=== PATIENT | female | born 1980 | race Caucasian/White ===

== ENCOUNTER 2020-09-04 14:27 | Outpatient (REF) | payer OTHER, SELFPAY | END 2020-09-04 14:28 | disposition home or self-care (01) | LOC: HO.LAB 14:27 | PROVIDERS: Visit Provider Hospitalist | DX: R10.2 Pelvic and perineal pain (principal); R10.30 Lower abdominal pain, unspecified | CPT/HCPCS: 87086 ==

== ENCOUNTER 2020-09-11 09:49 | Outpatient (REF) | payer OTHER, SELFPAY ==
[2020-09-11 14:07] LABS: Hematocrit 41.5 % (37-47); Hemoglobin 12.9 g/dl (12.0-16.0); Mean Corpuscular HGB Conc 31.1 g/dl (31.0-35.0); Mean Corpuscular Hemoglobin 26.8 pg (27.0-33.0); Mean Corpuscular Volume 86.1 fL (80-98); Mean Platelet Volume 11.4 fL (9.4-12.3); Platelet Count 289 X10*3/uL (160-400); Red Blood Count 4.82 X10*6/uL (4.20-5.50); Red Cell Distribution Width 12.7 % (11.0-16.0); White Blood Count 4.5 X10*3/uL (4.8-10.8)
[2020-09-11 14:17] LABS: Appearance Urine CLEAR; Color Urine YELLOW; Glucose Urine UA NEG (NEG); Leukocyte Esterase Urine NEG (NEG); Nitrite Urine NEG (NEG); PH 6.5 (5.0-8.0); Specific Gravity - Urine 1.025 (1.005-1.025); Urine Blood TRACE (NEG); Urine Ketones NEG (NEG); Urine Protein NEG (NEG-TRACE)
[2020-09-11 14:29] LABS: RBC Urine 0-2 /HPF (0); Squamous Epithelial Cell Urine 1+ /LPF; WBC Urine 0 /HPF (0-4)
[2020-09-11 14:47] LABS: Alanine Aminotransferase 29 U/L (0-31); Anion Gap 14 (12-20); Aspartate Amino Transferase 20 U/L (5-31); Blood Urea Nitrogen 9 mg/dL (9-16); C Reactive Protein 0.23 mg/dL (< or = 0.50); Calcium 9.1 mg/dL (8.4-10.2); Carbon Dioxide 24 mmol/L (22-29); Chloride 102 mmol/L (96-108); Cholesterol 206 mg/dL; Estimated Glomerular Filt Rate > 60; HDL Cholesterol 75 mg/dL; LDL Cholesterol Calculated 121 mg/dl; Potassium 4.5 mmol/l (3.3-5.1); Sodium 135 mmol/L (135-145); Triglycerides 51 mg/dL
[2020-09-11 14:55] LABS: Glucose Random 62 mg/dL (60-115); TSH reflex Free T4 0.72 mIU/mL (0.32-4.0)
[2020-09-11 15:16] LABS: Erythrocyte Sedimentation Rate 7 MM/HR (0-20)
== END 2020-09-11 09:50 | disposition home or self-care (01) ==
LOC: HO.WFDLDS 09:49
PROVIDERS: Visit Provider Hospitalist
DX: Z00.00 Encounter for general adult medical examination without abnormal findings (principal); Z13.9 Encounter for screening, unspecified
CPT/HCPCS: 36415; 80048; 80061; 81001; 84443; 84450; 84460; 85027; 85652; 86140

== ENCOUNTER 2020-11-30 07:25 | Outpatient (REF) | payer OTHER, SELFPAY ==
--- NOTE | 2020-11-30 07:29 | MM_ITS ---
EXAMINATION: MM SCREENING DIGITAL BREAST TOMOSYNTHESIS, BILATERAL CLINICAL INFORMATION: Screening. Asymptomatic. The lifetime risk of breast cancer based on the Tyrer-Cuzick Model is 8.3%. COMPARISON: Mammography: None TECHNIQUE: Digital breast tomosynthesis is performed in both the craniocaudal and mediolateral oblique views along with computer-aided detection (CAD). Synthesized 2D images are generated from the tomosynthesis. FINDINGS: The breasts are heterogeneously dense, which may obscure small masses (ACR BI-RADS breast composition Category c). There are no significant masses, abnormal calcifications, or other abnormalities. MM/MM tomosynthesis screening BI IMPRESSION: There are no significant changes from prior study. ASSESSMENT: BI-RADS 1: Negative RECOMMENDATION: Routine annual mammography screening. This patient's information was entered into a reminder system with a target due date for their next mammogram.
== END 2020-11-30 07:26 | disposition home or self-care (01) ==
LOC: HO.MAMMO 07:25
PROVIDERS: PCP Hospitalist; Visit Provider Hospitalist
DX: Z12.31 Encounter for screening mammogram for malignant neoplasm of breast (principal)
CPT/HCPCS: 77063; 77067

== ENCOUNTER 2021-01-03 11:08 | Outpatient (REF) | payer OTHER, SELFPAY ==
[2021-01-03 13:50] LABS: MANUAL DIFF FLAG NO
[2021-01-03 13:57] LABS: Basophils Absolute Auto 0.1 X10*3/uL (0.0-0.2); Basophils Percent Auto 0.7 % (0-2); Eosinophils Absolute Auto 0.2 X10*3/uL (0.0-0.4); Eosinophils Percent Auto 2.1 % (0-4); Hemoglobin 12.6 g/dl (12.0-16.0); Imm Gran Abs Auto 0.03 X10*3/uL (0.00-0.03); Imm Gran Pct Auto 0.4 % (0.0-0.4); Lymphocytes Percent Auto 26.7 % (20-40); Mean Corpuscular HGB Conc 30.7 g/dl (31.0-35.0); Mean Corpuscular Hemoglobin 26.6 pg (27.0-33.0); Mean Corpuscular Volume 86.7 fL (80-98); Mean Platelet Volume 11.3 fL (9.4-12.3); Monocytes Absolute Auto 0.6 X10*3/uL (0.1-1.2); Monocytes Percent Auto 7.2 % (2-11); Neutrophils Absolute Auto 4.8 X10*3/uL (2.0-8.3); Neutrophils Percent Auto 62.9 % (45-73); Platelet Count 326 X10*3/uL (160-400); Red Blood Count 4.73 X10*6/uL (4.20-5.50); Red Cell Distribution Width 12.3 % (11.0-16.0); White Blood Count 7.6 X10*3/uL (4.8-10.8)
[2021-01-03 14:26] LABS: Alanine Aminotransferase 58 U/L (0-31); Albumin Level 4.4 g/dL (3.5-5.0); Alkaline Phosphatase 115 U/L (39-117); Anion Gap 12 (12-20); Aspartate Amino Transferase 29 U/L (5-31); Bilirubin Total 0.4 mg/dL (0.0-1.0); Blood Urea Nitrogen 15 mg/dL (9-16); Calcium 9.4 mg/dL (8.4-10.2); Carbon Dioxide 27 mmol/L (22-29); Chloride 104 mmol/L (96-108); Estimated Glomerular Filt Rate > 60; Glucose Random 85 mg/dL (60-115); Potassium 4.5 mmol/L (3.3-5.1); Sodium 138 mmol/L (135-145); Total Protein 7.1 g/dL (6.5-8.0)
== END 2021-01-03 11:09 | disposition home or self-care (01) ==
LOC: HO.WFDLDS 11:08
PROVIDERS: Visit Provider Family Medicine
DX: R10.30 Lower abdominal pain, unspecified (principal)
CPT/HCPCS: 36415; 80053; 85025

== ENCOUNTER → 2021-02-12 10:41 | Outpatient (BNVA) | payer OTHER, SELFPAY | PROVIDERS: PCP Family Medicine; Visit Provider Physician Assistant ==

== ENCOUNTER 2021-04-04 07:13 | Day surgery (SDC) | payer OTHER, SELFPAY ==
[2021-04-02 14:26] VITALS: BMI 28.3
--- NOTE | 2021-04-04 07:45 | W.PM.OPN ---
Operative Note Operative Note Date of Service: 04/04/21 Narrative: Pre-op diagnosis: Abdominal pain, change in bowel habits Post-op diagnosis: other (Diverticulosis) Procedure: COLONOSCOPY TILL CECUM WITH BIOPSIES Consent: Indications for the procedure and potential complications of bleeding, perforation, reaction to medications and missed diagnosis were discussed with the patient and informed consent was obtained. Instrument: Olympus PCF H 190 L variable stiffness pediatric colonoscope Monitoring: Vital signs and clinical assessment, intermittent blood pressure monitoring, continuous EKG monitoring, Pulse oximetry and Carbon Dioxide monitoring were done throughout the procedure. Colon withdrawl time was 13 minutes. Procedure: The patient was placed in the left lateral decubitis position and pre-procedure medications were administered. After a digital rectal examination of the ano-rectum, the video colonoscope was inserted into the rectum and advanced through the colon to the cecum. The colonoscope was slowly withdrawn in a retrograde panoramic fashion and the colon mucosa was carefully examined including a retroflexed view of the rectum. Findings and interventions are described below. Procedure Difficulty: Colon was long and tortuous and there recurrent loop formation. No maneuvers were required. Findings: Terminal Ileum: The distal 10 cm was examined and appeared normal - random biopsies were obtained Cecum: Normal Ascending Colon: Normal Transverse Colon: Normal Descending Colon: Normal Sigmoid Colon: Moderate diverticulosis Rectum: Normal Ano-rectum: Normal Colon preparation: Excellent Impression and Post Procedure Diagnosis: Colonoscopy Findings: No polyps were detected. Random biopsies obtained from the colon and TI. Moderate diverticulosis seen in the sigmoid colon Plan: Await pathology results Patient has an appointment on 04/17/21 in the [facility] with ROGER Andrade . Repeat Colonoscopy in 10 years if biopsies are normal (with adult colonoscope). Above findings were reviewed with the patient and diverticulosis handout was given in the discharge area Surgeon: Sangeeta Kenney MD Anesthesia: MAC (Dr Ruth & Dr Saab) Was an Chemical Detection Expert used for this Procedure?: No Chemical Detection Expert: April Norman Estimated blood loss (mL): 0 Pathology: other (A: TERMINAL ILEUM BXS R/O CROHN'S DX B: RANDOM COLON BXS R/O MICROSCOPIC COLITIS) Condition: stable Disposition: PACU
--- NOTE | 2021-04-04 07:45 | MHC.SHP ---
Pre-Procedural Eval Section A The patient is an INPATIENT: No The History & Physical has been completed within 30 days and I have reviewed it.: No Section B Chief Complaint: Lower Abdominal Pain Details of Present Illness: abdominal pain, change in bowel habits Relevant Family History (Specify if Yes): No Relevant Social History: None Present Medications: see Short Stay Collaborative assessment Medical History: No relevant PMH History of Previous Operations: Relevant previous surgery/procedure and date(s) (History of tubal ligation) Allergies: Allergies Allergy/AdvReac Type Severity Reaction Status Date / Time No Known Allergies Allergy Verified 02/12/21 10:42 [No Known Allergies*] general anesthesia AdvReac Severe Blood Uncoded 01/03/21 10:37 pressure dropped very low. Review of Systems Sugical H&P ROS: Negative: Constitution, Cardiovascular and Respiratory and Yes, Specify: Gastrointestinal (abd pain, change in bowel habits) Exam Surgical H&P Exam: Normal: Heart, Normal: Lungs, Normal: Extremities and Normal: Abdomen Plan Diagnosis/Plan: Unchanged I have reviewed the history and physical and performed a pertinent physical examination on my patient. No changes have occurred unless specified.
[2021-04-04 09:02] VITALS: BP 121/68; PULSE 67; RESP 18; TEMP 36.1; O2SAT 100
[2021-04-04 09:17] VITALS: BP 108/63; PULSE 73; RESP 16; TEMP 36.1; O2SAT 100
== END 2021-04-04 10:14 | disposition home or self-care (01) ==
PROVIDERS: PCP Registered Nurse; Visit Provider Internal Medicine Gastroenterology
PROC: 0DJD8ZZ Inspection of Lower Intestinal Tract, Via Natural or Artificial Opening Endoscopic (ICD-10-PCS; CPT 45378; principal; 2021-04-04 08:10)
DX: R10.30 Lower abdominal pain, unspecified (principal); R19.4 Change in bowel habit; K57.30 Diverticulosis of large intestine without perforation or abscess without bleeding; Z88.8 Allergy status to other drugs, medicaments and biological substances
CPT/HCPCS: 45380; 88305

== ENCOUNTER → 2021-04-21 11:17 | Outpatient (BNVA) | payer OTHER, SELFPAY | PROVIDERS: PCP Family Medicine; Visit Provider Physician Assistant ==

== ENCOUNTER → 2021-06-25 12:14 | Outpatient (BNVA) | payer OTHER, SELFPAY | PROVIDERS: PCP Family Medicine; Visit Provider Physician Assistant ==

== ENCOUNTER 2021-08-01 09:04 | Outpatient (REF) | payer OTHER, SELFPAY ==
[2021-08-01 11:19] LABS: HBS Num1 0.15 mIU/mL (0-7.99); HBc Num1 0.06 S/CO (0.00-0.79); Hepatitis B Core Antibody Nonreactive (Nonreactive); ~HepC Num1 0.07 S/CO (0.00-0.79); ~Hepatitis B Surface Antibody NONREACTIVE (Nonreactive); ~Hepatitis C Antibody Nonreactive (Nonreactive)
[2021-08-01 11:23] LABS: Thyroid Stimulating Hormone 1.24 uIU/mL (0.32-4.0)
[2021-08-01 11:32] LABS: HBsAGNum1 0.13 S/CO (0.00-0.99); Hepatitis A Antibody IgM 0.13 Index (0-0.79); Hepatitis B Surface Antigen Negative (Negative); ~Hepatitis A Antibody IgM Nonreactive (Nonreactive)
[2021-08-05 11:36] LABS: Transglutaminase IgA <1.0 U/mL
[2021-08-06 11:22] LABS: Endomysial IgA Antibody Negative (Negative)
[2021-08-10 22:21] LABS: FIB-ALT 58 U/L (6-29); FIB-Alpha-2-Macroglobulin 169 mg/dL (106-279); FIB-Apolipoprotein A1 182 mg/dL (101-198); FIB-GGT 116 U/L (3-55); FIB-Haptoglobin 159 mg/dL (43-212); FIB-Total Bilirubin 0.4 mg/dL (0.2-1.2); Liver Fibrosis Stage F0; Nec Inflam Act Grade A0-A1; Nec Inflam Act Score 0.28
== END 2021-08-01 09:05 | disposition home or self-care (01) ==
LOC: HO.WFDLDS 09:04
PROVIDERS: Visit Provider Physician Assistant
DX: R19.7 Diarrhea, unspecified (principal); R94.5 Abnormal results of liver function studies; B19.20 Unspecified viral hepatitis C without hepatic coma; K59.09 Other constipation
CPT/HCPCS: 36415; 81596; 83516; 84443; 86255; 86256; 86704; 86706; 86709; 86803; 87340

== ENCOUNTER 2021-08-15 09:16 | Outpatient (REF) | payer OTHER, SELFPAY | END 2021-08-15 09:17 | disposition home or self-care (01) | LOC: HO.WFDLDS 09:16 | PROVIDERS: Visit Provider Family Medicine | DX: Z13.89 Encounter for screening for other disorder (principal) ==

== ENCOUNTER 2021-08-18 09:15 | Outpatient (REF) | payer OTHER, SELFPAY ==
[2021-08-18 11:27] LABS: D Dimer < 200 NG/ML
[2021-08-18 11:54] LABS: Alanine Aminotransferase 25 U/L (0-31); Albumin Level 4.3 g/dL (3.5-5.0); Alkaline Phosphatase 86 U/L (39-117); Aspartate Amino Transferase 21 U/L (5-31); Bilirubin Direct 0.2 mg/dL (0.0-0.5); Bilirubin Total 0.4 mg/dL (0.0-1.0); Total Protein 6.9 g/dL (6.5-8.0)
== END 2021-08-18 09:16 | disposition home or self-care (01) ==
LOC: HO.LAB 09:15
PROVIDERS: Physician Assistant; PCP Family Medicine; Visit Provider Family Medicine
DX: R10.11 Right upper quadrant pain (principal)
CPT/HCPCS: 36415; 80076; 85379

== ENCOUNTER 2022-07-03 09:49 | Outpatient (REF) | payer OTHER, SELFPAY ==
--- NOTE | ~2022-07-03 | XR_ITS ---
EXAMINATION: XR ANKLE, LEFT CLINICAL INFORMATION: Left ankle 3 views COMPARISON: None TECHNIQUE: AP, lateral, and mortise views of the left ankle. FINDINGS: The mortise is intact. There is no evidence of an acute fracture, dislocation or destructive process. XR/XR ankle LT min 3V IMPRESSION: Unremarkable study.
== END 2022-07-03 09:50 | disposition home or self-care (01) ==
LOC: HO.HMGCX 09:49
PROVIDERS: PCP Family Medicine; Visit Provider Internal Medicine
DX: S93.402A Sprain of unspecified ligament of left ankle, initial encounter (principal)
CPT/HCPCS: 73610

== ENCOUNTER 2022-08-15 09:55 | Outpatient (REF) | payer OTHER, SELFPAY ==
--- NOTE | ~2022-08-15 | MM_ITS ---
EXAMINATION: MM SCREENING DIGITAL BREAST TOMOSYNTHESIS, BILATERAL CLINICAL INFORMATION: Screening. Asymptomatic. The lifetime risk of breast cancer based on the Tyrer-Cuzick Model is 8%. COMPARISON: Mammography: 11/30/2020 (baseline) TECHNIQUE: Digital breast tomosynthesis is performed in both the craniocaudal and mediolateral oblique views along with computer-aided detection (CAD). Synthesized 2D images are generated from the tomosynthesis. FINDINGS: The breasts are heterogeneously dense, which may obscure small masses (ACR BI-RADS breast composition Category c). There are no significant masses, abnormal calcifications, or other abnormalities. Parenchymal pattern is similar to prior baseline exam. The axilla and skin contours are unremarkable. No significant changes. MM/MM tomosynthesis screening BI IMPRESSION: No mammographic evidence of malignancy. ASSESSMENT: BI-RADS 1: Negative RECOMMENDATION: Routine annual mammography screening. This patient's information was entered into a reminder system with a target due date for their next mammogram.
== END 2022-08-15 09:56 | disposition home or self-care (01) ==
LOC: HO.MAMMO 09:55
PROVIDERS: PCP Family Medicine; Visit Provider Family Medicine
DX: Z12.31 Encounter for screening mammogram for malignant neoplasm of breast (principal)
CPT/HCPCS: 77063; 77067

== ENCOUNTER 2022-10-05 11:35 | Outpatient (REF) | payer OTHER, SELFPAY ==
[2022-10-05 14:04] LABS: Hematocrit 42.9 % (37.0-47.0); Hemoglobin 13.3 g/dl (12.0-16.0); Mean Corpuscular Hemoglobin 26.6 pg (27.0-33.0); Mean Corpuscular Volume 85.8 fL (80.0-98.0); Mean Platelet Volume 11.7 fL (9.4-12.3); Platelet Count 318 X10*3/uL (160-400); Red Cell Distribution Width 12.7 % (11.0-16.0); White Blood Count 7.8 X10*3/uL (4.8-10.8)
== END 2022-10-05 11:36 | disposition home or self-care (01) ==
LOC: HO.WFDLDS 11:35
PROVIDERS: Visit Provider Nurse Practitioner Family
DX: R20.2 Paresthesia of skin (principal)
CPT/HCPCS: 36415; 85027

== ENCOUNTER 2022-11-03 09:34 | Outpatient (REF) | payer OTHER, SELFPAY ==
[2022-11-03 11:56] LABS: Alanine Aminotransferase 47 U/L (0-31); Albumin Level 4.2 g/dL (3.5-5.0); Alkaline Phosphatase 109 U/L (39-117); Anion Gap 10 (12-20); Aspartate Amino Transferase 28 U/L (5-31); Bilirubin Total 0.6 mg/dL (0.0-1.0); Blood Urea Nitrogen 12 mg/dL (9-16); Calcium 9.1 mg/dL (8.4-10.2); Carbon Dioxide 26 mmol/L (22-29); Chloride 108 mmol/L (96-108); Cholesterol 210 mg/dL; Estimated Glomerular Filt Rate > 60; Glucose Fasting 93 mg/dL (60-99); HDL Cholesterol 68 mg/dL; LDL Cholesterol Calculated 128 mg/dl; Potassium 4.2 mmol/L (3.3-5.1); Sodium 140 mmol/L (135-145); Total Protein 6.7 g/dL (6.5-8.0); Triglycerides 73 mg/dL
[2022-11-03 12:16] LABS: TSH reflex Free T4 1.21 uIU/mL (0.32-4.0)
== END 2022-11-03 09:35 | disposition home or self-care (01) ==
LOC: HO.WFDLDS 09:34
PROVIDERS: Visit Provider Family Medicine
DX: Z00.00 Encounter for general adult medical examination without abnormal findings (principal)
CPT/HCPCS: 36415; 80053; 80061; 84443

== ENCOUNTER 2023-01-01 09:03 | Outpatient (REF) | payer OTHER, SELFPAY ==
[2023-01-02 03:24] LABS: CT PCR NOT DETECTED (Not Detect.); NG PCR NOT DETECTED (Not Detect.)
[2023-01-06 01:10] LABS: HPV mRNA E6/E7 rflx Not Detected (Not Detected)
== END 2023-01-01 09:04 | disposition home or self-care (01) ==
LOC: HO.LNP 09:03
PROVIDERS: PCP Family Medicine; Visit Provider Advanced Practice Midwife
DX: Z01.419 Encounter for gynecological examination (general) (routine) without abnormal findings (principal); Z20.2 Contact with and (suspected) exposure to infections with a predominantly sexual mode of transmission
CPT/HCPCS: 0353U; 87624; 88142

== ENCOUNTER 2023-02-04 08:52 | Outpatient (REF) | payer OTHER, SELFPAY ==
--- NOTE | ~2023-02-04 | XR_ITS ---
EXAMINATION: XR KNEE, LEFT CLINICAL INFORMATION: Knee pain COMPARISON: None available. TECHNIQUE: AP and lateral views of the left knee of the left knee. FINDINGS: There is no evidence of acute fracture or dislocation of the left knee. Left knee joint spaces are maintained. Small left knee effusion. No suspicious lesion is noted. XR/XR knee LT 2V IMPRESSION: Small left knee effusion without underlying bony abnormality appreciated.
--- NOTE | ~2023-02-04 | XR_ITS ---
EXAMINATION: XR KNEE, RIGHT CLINICAL INFORMATION: Right knee pain COMPARISON: None available. TECHNIQUE: AP and lateral views of the right knee. FINDINGS: There is no evidence of acute fracture or dislocation right knee. Right knee joint spaces are maintained. There is a small patella spur superiorly at the patellofemoral joint. There is a small suprapatellar effusion seen. XR/XR knee RT 2V IMPRESSION: Small right knee effusion. No significant bony abnormality appreciated.
[2023-02-04 12:20] LABS: Alanine Aminotransferase 35 U/L (0-31); Alkaline Phosphatase 113 U/L (39-117); Anion Gap 14 (12-20); Aspartate Amino Transferase 20 U/L (5-31); Bilirubin Total 0.3 mg/dL (0.0-1.0); Blood Urea Nitrogen 12 mg/dL (9-16); Calcium 9.1 mg/dL (8.4-10.2); Carbon Dioxide 25 mmol/L (22-29); Chloride 108 mmol/L (96-108); Estimated Glomerular Filt Rate > 60; Glucose Random 92 mg/dL (60-115); Potassium 4.5 mmol/L (3.3-5.1); Sodium 142 mmol/L (135-145); Total Protein 6.4 g/dL (6.5-8.0)
[2023-02-04 14:23] LABS: MANUAL DIFF FLAG NO
[2023-02-04 14:27] LABS: Basophils Absolute Auto 0.1 X10*3/uL (0.0-0.2); Basophils Percent Auto 0.6 % (0-2); Eosinophils Absolute Auto 0.1 X10*3/uL (0.0-0.4); Eosinophils Percent Auto 0.9 % (0-4); Hematocrit 43.1 % (37.0-47.0); Hemoglobin 13.4 g/dl (12.0-16.0); Imm Gran Abs Auto 0.04 X10*3/uL (0.00-0.03); Imm Gran Pct Auto 0.5 % (0.0-0.4); Lymphocytes Percent Auto 25.9 % (20-40); Mean Corpuscular HGB Conc 31.1 g/dl (31.0-35.0); Mean Corpuscular Hemoglobin 26.9 pg (27.0-33.0); Mean Corpuscular Volume 86.5 fL (80.0-98.0); Mean Platelet Volume 11.7 fL (9.4-12.3); Monocytes Absolute Auto 0.5 X10*3/uL (0.1-1.2); Neutrophils Absolute Auto 5.1 x10*3/uL (2.0-8.3); Neutrophils Percent Auto 66.1 % (45-73); Platelet Count 326 X10*3/uL (160-400); Red Blood Count 4.98 X10*6/uL (4.20-5.50); Red Cell Distribution Width 12.7 % (11.0-16.0); White Blood Count 7.7 X10*3/uL (4.8-10.8)
[2023-02-04 14:30] LABS: Rheumatoid Factor < 13.0 IU/mL (<15.0)
[2023-02-04 15:07] LABS: D Dimer High Sensitivity < 150 NG/ML
[2023-02-04 15:19] LABS: Erythrocyte Sedimentation Rate 10 MM/HR (0-20)
[2023-02-05 03:34] LABS: Syphilis Screen Nonreactive (Nonreactive)
[2023-02-05 04:11] LABS: HBc Num1 0.06 S/CO (0.00-0.79); HIV AB/AG Nonreactive (Nonreactive); HIV Num 1 0.05 S/CO (0.00-0.99); Hepatitis B Core Antibody Nonreactive (Nonreactive); ~HepC Num1 0.07 S/CO (0.00-0.79); ~Hepatitis C Antibody Nonreactive (Nonreactive)
[2023-02-06 18:29] LABS: CRP High Sensitivity 2.4 mg/L
== END 2023-02-04 08:53 | disposition home or self-care (01) ==
LOC: HO.WFDLDS 08:52
PROVIDERS: Advanced Practice Midwife; PCP Family Medicine; Visit Provider Family Medicine
DX: Z00.00 Encounter for general adult medical examination without abnormal findings (principal); Z11.4 Encounter for screening for human immunodeficiency virus [HIV]; R74.8 Abnormal levels of other serum enzymes; M25.561 Pain in right knee; M25.562 Pain in left knee; M79.604 Pain in right leg; M79.605 Pain in left leg; Z20.2 Contact with and (suspected) exposure to infections with a predominantly sexual mode of transmission
CPT/HCPCS: 36415; 73560; 80053; 85025; 85379; 85652; 86141; 86431; 86704; 86780; 86803; 87389

== ENCOUNTER 2023-04-22 09:15 | Outpatient (REF) | payer OTHER, SELFPAY ==
--- NOTE | ~2023-04-22 | XR_ITS ---
EXAMINATION: XR PELVIS CLINICAL INFORMATION: Pain COMPARISON: None available. TECHNIQUE: AP view of the pelvis. FINDINGS: Mild symmetric hip joint space narrowing and small osteophytes along the acetabular rim. No fracture or focal osseous lesion. Surgical clips overlie the inferomedial aspect of both hips. XR/XR pelvis 1-2V IMPRESSION: Mild symmetric bilateral hip osteoarthritis. No acute osseous abnormality.
--- NOTE | ~2023-04-22 | XR_ITS ---
EXAMINATION: XR AP STANDING VIEW BOTH KNEES. XR KNEE, BILATERAL. CLINICAL INFORMATION: Bilateral knee pain COMPARISON: 02/04/2023 TECHNIQUE: AP standing view both knees. Lateral and sunrise views of each knee. FINDINGS: Minimal medial compartment osteoarthritis of both knees which appears symmetric with small marginal osteophytes and minimal narrowing. No significant change. Otherwise unremarkable. No joint effusions. No fracture. XR/XR knee standing BI IMPRESSION: Minimal medial compartment osteoarthritis of both knees, unchanged.
--- NOTE | ~2023-04-22 | XR_ITS ---
EXAMINATION: XR AP STANDING VIEW BOTH KNEES. XR KNEE, BILATERAL. CLINICAL INFORMATION: Bilateral knee pain COMPARISON: 02/04/2023 TECHNIQUE: AP standing view both knees. Lateral and sunrise views of each knee. FINDINGS: Minimal medial compartment osteoarthritis of both knees which appears symmetric with small marginal osteophytes and minimal narrowing. No significant change. Otherwise unremarkable. No joint effusions. No fracture. XR/XR knee RT 2V IMPRESSION: Minimal medial compartment osteoarthritis of both knees, unchanged.
--- NOTE | ~2023-04-22 | XR_ITS ---
EXAMINATION: XR AP STANDING VIEW BOTH KNEES. XR KNEE, BILATERAL. CLINICAL INFORMATION: Bilateral knee pain COMPARISON: 02/04/2023 TECHNIQUE: AP standing view both knees. Lateral and sunrise views of each knee. FINDINGS: Minimal medial compartment osteoarthritis of both knees which appears symmetric with small marginal osteophytes and minimal narrowing. No significant change. Otherwise unremarkable. No joint effusions. No fracture. XR/XR knee LT 2V IMPRESSION: Minimal medial compartment osteoarthritis of both knees, unchanged.
== END 2023-04-22 09:16 | disposition home or self-care (01) ==
LOC: HO.HOSX 09:15
PROVIDERS: PCP Family Medicine; Visit Provider Orthopaedic Surgery
DX: M17.0 Bilateral primary osteoarthritis of knee (principal); M25.551 Pain in right hip; M25.552 Pain in left hip
CPT/HCPCS: 72170; 73560; 73565

== ENCOUNTER 2023-08-12 08:58 | Outpatient (AMB) | payer OTHER, SELFPAY ==
[2023-08-12 09:09] VITALS: BP 133/63; PULSE 66; BMI 27.0
--- NOTE | 2023-08-12 09:09 | MHC.OFFVIS ---
Intake Vital Signs 08/12/23 09:09 Height 5 ft 2 in Weight 147 lb 11.355 oz BMI 27.0 BP 133/63 Blood Pressure Location Lt brachial Position Sitting Pulse 66 Intake Visit Reasons: having stomach issues again Intake Note: Yue presents in the office for stomach issues. CC: She has to use the bathroom too often that it is starting to mess with her life. It is loose stools when she has a BM. No blood when she has a BM. All over the stomach not a specific spot. Allergies No Known Allergies [No Known Allergies*] Allergy (Verified 08/12/23 09:09) general anesthesia Adverse Reaction (Severe, Uncoded 08/12/23 09:09) Blood pressure dropped very low. Medication List - Last Reconciled 08/12/23 by Cyn Lewis PA-C No Known Home Meds HPI HPI Comments History of Present Illness Details A 43 y/o female with IBS- presents with urgency- she is stressed out at her job-her daughter getting - She has sometimes 3 or 4 loose stool a day- She has taken imodium- sometimes it works , sometimes it doesnt- This is effecting her job- her job site may change- and the BR will not be close-She is thinking of applying for FMLA She has had no fever, chills, weight loss, abdominal pain hematemesis or hematochezia PFSH Medical History (Updated 08/16/23 @ 12:28 by Cyn Lewis PA-C) Hx of cardiac murmur Deficient knowledge of leg surgery Surgical History H/O colonoscopy Hx of varicose vein ligation History of tubal ligation Family History Father No problems noted. Sister No problems noted. Sister No problems noted. 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 Current occupational exposures/hazards: No Cognitive needs: No Hearing needs: No Vision needs: No Review of Systems Const All systems reviewed & are unremarkable except as noted in HPI and below Card Denies chest pain and Denies dyspnea Resp Denies dyspnea GI Denies abdominal pain, Denies heartburn, Reports loose stools, Denies nausea and Denies vomiting Psych Reports anxiety Physical Exam Vital Signs: Last Vital Signs Pulse 66 08/12/23 09:09 BP 133/63 08/12/23 09:09 BMI result Body Mass Index 27.0 Const General: cooperative, healthy appearing, comfortable and anxious Orientation/consciousness: patient oriented x3 Limitations: no limitations Eyes Sclerae: sclerae normal Resp Effort & Inspection: normal respiratory effort and able to speak in complete sentences Auscultation: clear to auscultation bilaterally, no rales, no rhonchi and no wheezes Cardio Rate: regular rate Rhythm: regular rhythm Heart sounds: S1 normal heart sound present and S2 normal heart sound present GI Palpation (GI): Soft to palpation and nontender Skin General skin exam: no rashes or lesions noted Neuro General: patient oriented x3 Extrem General: Yes full ROM Psych Appearance: grossly normal and well kempt Mental Status: mental status grossly normal Speech and movement: Normal speech and movement present and Clear speech present Affect: Anxious affect present Attitude: cooperative Thought process: Normal thought process present Thought content: Normal thought content present Insight: Good insight present (Psych) Judgement: Good judgement present (Psych) Results Reviewed Results Reviewed: ollected: 04/04/21 Location: [facility] Received: 04/04/21 Diagnosis A.? Terminal ileum, biopsy:? Terminal ileal mucosa within normal limits. B.? Colon, random, biopsy:? Colonic mucosa within normal limits. COMMENT: Diagnostic features of a colitis are not seen. Assessment & Plan Assessment & Plan (1) IBS (irritable bowel syndrome): Code(s): K58.9 - Irritable bowel syndrome without diarrhea Plan: Dicyclomine 10 mg upto tid- Citrucel FODMap (2) Anxiety: Code(s): F41.9 - Anxiety disorder, unspecified Medications: New dicyclomine 10 mg PO TID 90 caps 0RF methylcellulose (laxative) ([employer]rucel) 500 mg PO BID 60 tabs 5RF Patient Instructions: 43-year-old female IBS, very anxious-job stress, Stress reduction Will give trial of once again to dicyclomine 10 mg, she may begin with 1 daily she may increase to t.i.d. if needed. Reviewed maintain high-fiber she may give trial to [employer] Prep has a few socially vents coming up that causes extra stress hopefully as the wind down symptoms will improve Encouraged to call with any questions or concerns Appreciate the opportunity assist in care the patient Coding Level of Care Code Est Pt Level 3 (85538) Diagnoses IBS (irritable bowel syndrome) K58.9 Anxiety F41.9 Time Spent (min) 30
== END 2023-08-12 09:42 | disposition home or self-care (01) ==
PROVIDERS: PCP Family Medicine; Visit Provider Physician Assistant
DX: K58.9 Irritable bowel syndrome, unspecified (principal); F41.9 Anxiety disorder, unspecified
CPT/HCPCS: 99213

== ENCOUNTER → 2023-08-12 08:58 | Outpatient (BNVA) | payer OTHER, SELFPAY | PROVIDERS: PCP Family Medicine; Visit Provider Physician Assistant ==

== ENCOUNTER 2023-09-13 09:23 | Outpatient (AMB) | payer OTHER, SELFPAY ==
[2023-09-13 09:29] VITALS: BP 104/53; PULSE 74; BMI 28.9
--- NOTE | 2023-09-13 09:29 | MHC.OFFVIS ---
Intake Vital Signs 09/13/23 09:29 Height 5 ft 2 in Weight 158 lb BMI 28.9 BP 104/53 L Blood Pressure Location Lt brachial Position Sitting Pulse 74 Intake Visit Reasons: 1 month follow up IBS Intake Note: Patient follow up for IBS. Patient denies any other GI issues. Progressive Care Manager Required: No Accompanied by: Self / Same As Patient Allergies No Known Allergies [No Known Allergies*] Allergy (Verified 09/13/23 09:28) general anesthesia Adverse Reaction (Severe, Uncoded 08/12/23 09:09) Blood pressure dropped very low. 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 She has a followed here job that she does not we can as that is something she enjoys an she has not had 1 event. She does discussed at length her stool work stress- Trial dicyclomine 10 mg, she may begin with 1 daily she may increase to t.i.d. if needed. Reviewed maintain high-fiber she may give trial to [employer]-she has not taken Appetite is fairly good No nausea, vomiting, hematemesis, hematochezia, fever chills PFSH Medical History Hx of cardiac murmur Deficient knowledge of leg surgery Surgical History H/O colonoscopy Hx of varicose vein ligation History of tubal ligation Family History Father No problems noted. Sister No problems noted. Sister No problems noted. 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 Current occupational exposures/hazards: No Cognitive needs: No Hearing needs: No Vision needs: No Review of Systems Const All systems reviewed & are unremarkable except as noted in HPI and below Card Denies chest pain Psych Reports anxiety Physical Exam Vital Signs: Last Vital Signs Pulse 74 09/13/23 09:29 BP 104/53 L 09/13/23 09:29 BMI result Body Mass Index 28.9 Const General: cooperative, healthy appearing, comfortable and no acute distress Orientation/consciousness: patient oriented x3 Limitations: no limitations Eyes Sclerae: sclerae normal Resp Effort & Inspection: normal respiratory effort and able to speak in complete sentences Auscultation: clear to auscultation bilaterally, no rales, no rhonchi and no wheezes Cardio Rate: regular rate Rhythm: regular rhythm Heart sounds: S1 normal heart sound present, S2 normal heart sound present and no murmurs (With no murmur appreciated) Skin General skin exam: no rashes or lesions noted Neuro General: patient oriented x3 Extrem General: Yes full ROM Psych Appearance: grossly normal and well kempt Mental Status: mental status grossly normal Speech and movement: Normal speech and movement present and Clear speech present Affect: Anxious affect present Attitude: cooperative Thought process: Normal thought process present Assessment & Plan Assessment & Plan (1) Anxiety: Comment: Extreme job stress Code(s): F41.9 - Anxiety disorder, unspecified Plan: Stress reduction Follow-up PCP (2) IBS (irritable bowel syndrome): Code(s): K58.9 - Irritable bowel syndrome without diarrhea Plan: Trial dicyclomine, [employer] Plan reassurrance Hopefully she will be able to change positions within her organization Patient Instructions: Job stress-lengthy discussion Hopefully she is able to be redirected within her in as a rdz Encouraged to call questions or concerns She will follow-up with PCP as well Coding Level of Care Code Est Pt Level 3 (89097) Diagnoses Anxiety F41.9 IBS (irritable bowel syndrome) K58.9 Time Spent (min) 30
== END 2023-09-13 13:42 | disposition home or self-care (01) ==
PROVIDERS: PCP Family Medicine; Visit Provider Physician Assistant
DX: F41.9 Anxiety disorder, unspecified (principal); K58.9 Irritable bowel syndrome, unspecified
CPT/HCPCS: 99213

== ENCOUNTER → 2023-09-13 09:23 | Outpatient (BNVA) | payer OTHER, SELFPAY | PROVIDERS: PCP Family Medicine; Visit Provider Physician Assistant ==

== ENCOUNTER 2023-09-16 15:50 | Outpatient (AMB) | payer OTHER, SELFPAY ==
--- NOTE | 2023-09-16 15:53 | A.OFFPC_ITS ---
Vital Signs 09/16/23 15:54 Height 5 ft 2 in Weight 163 lb 4 oz BMI 29.9 BP 112/64 Blood Pressure Location Rt brachial Position Sitting Respiration 13 Pulse 88 Pulse Source Pulse Oximeter Temp 97.8 F Temp Source Temporal Artery Scan Pulse Oximetry (%) 99 Oxygen Delivery Method Room Air Intake Visit Reasons: R hand pain Intake Note: Patient states that the sensation feels like her hand is falling asleep. Patient states that it started when she was on her cruise, and it keeps happening in the middle of the night. Patient states that the pain is in her wrist as well. 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 Medication List - Last Reconciled 09/16/23 by Tuyet Chatman CNP dicyclomine 10 mg PO TID methylcellulose (laxative) (Citrucel) 500 mg PO BID Tobacco use date assessed: 09/16/23 Dental Screening Dental Screen Date: 09/16/23 Did you have a dental visit in the last 12 months?: Yes Did you have a dental problem in the last 6 months where you did not have access to dental care?: No Was dental information given to patient?: Patient has dentist HPI HPI Comments History of Present Illness Details 43-year-old female presents with complai nts tingling and numbness to her right hand. She notes that She notes that the smptoms radiates from the wrist to her fingers and worsen at night. Her symptoms have been intermittent for the past 1 month. She denies loss of sensation. She denies fall, injury, or trauma. [facility] Medical History Hx of cardiac murmur Deficient knowledge of leg surgery Surgical History H/O colonoscopy Hx of varicose vein ligation History of tubal ligation Family History Father No problems noted. Sister No problems noted. Sister No problems noted. 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 Emilaino Hartley, Monisha Ace, Sunny Chilel and colleagues, with an educational billy from [employer]. Review of Systems Const Details: Const Denies chills, Denies fatigue, Denies fever(s), Denies headache(s) and Denies weakness ENT Denies dizziness and Denies headache(s) Card Denies chest pain, Denies lightheadedness, Denies dyspnea and Denies other (Palpitations) Resp Denies cough, Denies dyspnea, Denies wheezing and Denies other (shortness of breath) GI Denies abdominal pain, Denies melena, Denies hematochezia, Denies change in bowel habits, Denies dyspepsia and Denies nausea Denies hematuria and Denies dysuria Musc Reports as per HPI Skin/Breast Denies rash, Denies unusual bruising and Denies wounds Neuro Denies abnormal gait, Denies dizziness, Denies headache(s), Denies memory loss, Reports numbness, Denies Sensory deficit (Neuro), Reports tingling and Denies weakness Psych Denies anxiety, Denies depression, Denies memory loss Endo Denies cold intolerance, Denies fatigue, Denies heat intolerance, Denies polydipsia and Denies polyuria Aller/Immun Denies wheezing Physical exam (Primary Care) Vital Signs: Last Vital Signs Temp 97.8 F 09/16/23 15:54 Pulse 88 09/16/23 15:54 Resp 13 09/16/23 15:54 BP 112/64 09/16/23 15:54 Pulse Ox 99 09/16/23 15:54 Oxygen Delivery Method Room Air 09/16/23 15:54 BMI result Body Mass Index 29.9 Tobacco/Smoking Status: Tobacco use Status Tobacco use date assessed 11/13/22 09/16/23 16:06 Patient Tobacco Use Status Never used Tobacco 09/16/23 16:06 e-Cigarette/Vaping Use Never Used 09/16/23 16:06 Thrive Assessment: Date of Thrive Assessment Date Thrive assessed 11/13/22 09/16/23 16:06 Const Other: General: no acute distress and well developed Nutritional Appearance: well nourished Orientation/consciousness: patient oriented x3 HENMT Head: Yes normocephalic and Yes atraumatic Eyes General: appearance normal, both eyes and all related structures Pupils: Equal, round and reactive pupils present EOM: EOMs intact bilaterally Resp Effort & Inspection: normal respiratory effort Auscultation: clear to auscultation bilaterally Cardio Rate: regular rate Rhythm: regular rhythm Heart sounds: S1 normal heart sound present, S2 normal heart sound present, no gallops, no murmurs and no rubs GI Palpation (GI): No Abdominal aortic bruit present, Soft to palpation, nontender, No hepatosplenomegaly present and No Rebound tenderness present Auscultation: normal bowel sounds General: Yes no CVA tenderness Back/Spine/Pelvis Back: no CVA tenderness Cervical Spine: cervical ROM normal and No Cervical spine tenderness Thoracic/Lumbar Spine: thoraco-lumbar ROM normal, No pain with thoraco-lumbar ROM, No thoracic spinal tenderness and No lumbar spinal tenderness Extrem General: Yes normal to inspection, No edema and No calf tenderness Negative Phalen, Tinel, and Philomena test Skin General: warm and dry. Normal skin color. Normal skin turgor Neuro General: patient oriented x3, gait normal and no focal neuro deficit Cranial nerves: Yes Equal, round and reactive pupils present Cognition (Neuro): normal cognition Gait exam (Neuro): Normal gait present Sensory Exam: No Sensory deficit (Neuro) Psych Appearance: grossly normal Affect: normal affect Attitude: cooperative Thought process: Normal thought process present Assessment and Plan Assessment & Plan (1) Right hand paresthesia: Code(s): R20.2 - Paresthesia of skin Plan: Reports symptoms for the past 1 month Negative Phalen, Tinel, and Philomena test; low clinical suspicion workup patella syndrome or dequervain's tenosynovitis Likely nerve pain or electrolytes imbalance Gabapentin ordered. Take as prescribed Will check CBC and BMP and make changes as needed Follow-up with worsening or new symptoms Verbalized understanding and agreed with treatment plan. Medications: New gabapentin 200 mg (2 x 100 mg) PO BEDTIME 14 days PRN 28 caps 0RF paresthesia Coding Level of Care Code Est Pt Level 3 (93034) Diagnoses Right hand paresthesia R20.2
[2023-09-16 15:54] VITALS: BP 112/64; PULSE 88; RESP 13; TEMP 36.6; O2SAT 99; BMI 29.9
== END 2023-09-16 16:35 | disposition home or self-care (01) ==
PROVIDERS: PCP Family Medicine; Visit Provider Nurse Practitioner Family
DX: R20.2 Paresthesia of skin (principal)
CPT/HCPCS: 99213

== ENCOUNTER 2023-12-20 14:18 | Outpatient (AMB) | payer OTHER, SELFPAY ==
[2023-12-20 14:21] VITALS: BP 128/63; PULSE 60; BMI 29.3
--- NOTE | 2023-12-20 14:21 | A.OFFPC_ITS ---
Vital Signs 12/20/23 14:21 Height 5 ft 2 in Weight 160 lb 6 oz BMI 29.3 BP 128/63 Blood Pressure Location Lt brachial Position Sitting Pulse 60 Pulse Source Pulse Oximeter Intake Visit Reasons: Vomiting Blood Intake Note: Patient is here with concern of vomiting blood, mucousy looking. She states it started this morning. Allergies No Known Allergies [No Known Allergies*] Allergy (Verified 12/20/23 14:26) general anesthesia Adverse Reaction (Severe, Uncoded 12/20/23 14:26) Blood pressure dropped very low. Tobacco use date assessed: 12/20/23 HPI Vomiting Blood HPI Details 43 y/o female presents today with compla ints of hematemesis. Symptoms started this morning and reports x2 episodes. Pt notes hx of IBS which she states has been acting up lately. She does have a GI specialist - Cyn Lewis who she had called this morning. PFSH Medical History Hx of cardiac murmur Deficient knowledge of leg surgery Surgical History H/O colonoscopy Hx of varicose vein ligation History of tubal ligation Family History Father No problems noted. Sister No problems noted. Sister No problems noted. 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 Emiliano Hartley, Monisha Ace, Sunny Chilel and colleagues, with an educational billy from [employer]. Physical exam (Primary Care) Vital Signs: Last Vital Signs Pulse 60 12/20/23 14:21 BP 128/63 12/20/23 14:21 BMI result Body Mass Index 29.3 Tobacco/Smoking Status: Tobacco use Status Tobacco use date assessed 12/20/23 12/20/23 14:30 Patient Tobacco Use Status Never used Tobacco 12/20/23 14:30 e-Cigarette/Vaping Use Never Used 12/20/23 14:30 Thrive Assessment: Date of Thrive Assessment Date Thrive assessed 11/13/22 12/20/23 14:30 Assessment and Plan Assessment & Plan (1) Hematemesis: Code(s): K92.0 - Hematemesis Plan: Possible?gastritis?but?patient?notes?that?she?has?IBS?and ?this?has?been?flared?up?lately. May?have?significant?constipation/diarrhea?and?may?be?somewhat?obstipated?with?n ausea?and?vomiting. Check?labs?including?LFTs?and?CBC Will?give?her?a?script?for?omeprazole?and?ondansetron Increase?hydration?significantly She?tried?calling?her?heading and priming tool setter?today?but?they?are?on?holiday.??She?hetal l?call?again?tomorrow. (2) IBS (irritable bowel syndrome): Code(s): K58.9 - Irritable bowel syndrome without diarrhea Plan: As?above Orders: Orders Comprehensive Met. Panel Today K92.0 - Hematemesis Complete Blood Count Auto Diff Today K92.0 - Hematemesis, Z00.00 - Encounter for general adult medical examination without abnormal findings H pylori Ag Stool Today K92.0 - Hematemesis Medications: New omeprazole 40 mg PO DAILY 30 days 30 caps 0RF ondansetron 4 mg PO Q8H 30 days PRN 20 tabs 0RF nausea and vomiting Coding Level of Care Code Est Pt Level 3 (05239) Diagnoses Hematemesis K92.0 IBS (irritable bowel syndrome) K58.9
== END 2023-12-20 14:51 | disposition home or self-care (01) ==
PROVIDERS: PCP Family Medicine; Visit Provider Family Medicine
DX: K92.0 Hematemesis (principal); K58.9 Irritable bowel syndrome, unspecified
CPT/HCPCS: 99213

== ENCOUNTER 2023-12-21 16:06 | Outpatient (REF) | payer OTHER, SELFPAY ==
[2023-12-21 16:18] LABS: MANUAL DIFF FLAG NO
[2023-12-21 16:53] LABS: Basophils Absolute Auto 0.1 X10*3/uL (0.0-0.2); Basophils Percent Auto 0.7 % (0-2); Eosinophils Absolute Auto 0.1 X10*3/uL (0.0-0.4); Eosinophils Percent Auto 1.1 % (0-4); Hematocrit 42.6 % (37.0-47.0); Hemoglobin 13.4 g/dl (12.0-16.0); Imm Gran Abs Auto 0.01 X10*3/uL (0.00-0.03); Imm Gran Pct Auto 0.1 % (0.0-0.4); Lymphocytes Percent Auto 28.8 % (20-40); Mean Corpuscular HGB Conc 31.5 g/dl (31.0-35.0); Mean Corpuscular Volume 85.7 fL (80.0-98.0); Mean Platelet Volume 11.5 fL (9.4-12.3); Monocytes Absolute Auto 0.3 X10*3/uL (0.1-1.2); Monocytes Percent Auto 4.3 % (2-11); Neutrophils Absolute Auto 4.6 x10*3/uL (2.0-8.3); Platelet Count 311 X10*3/uL (160-400); Red Blood Count 4.97 X10*6/uL (4.20-5.50); Red Cell Distribution Width 12.3 % (11.0-16.0); White Blood Count 7.1 X10*3/uL (4.8-10.8)
[2023-12-21 17:15] LABS: Alanine Aminotransferase 26 U/L (0-31); Albumin Level 4.3 g/dL (3.5-5.0); Alkaline Phosphatase 92 U/L (39-117); Anion Gap 13 (12-20); Aspartate Amino Transferase 20 U/L (5-31); Bilirubin Total 0.3 mg/dL (0.0-1.0); Blood Urea Nitrogen 11 mg/dL (9-16); Calcium 9.7 mg/dL (8.4-10.2); Carbon Dioxide 26 mmol/L (22-29); Chloride 107 mmol/L (96-108); Estimated Glomerular Filt Rate > 60; Glucose Random 124 mg/dL (60-115); Potassium 3.9 mmol/L (3.3-5.1); Sodium 142 mmol/L (135-145); Total Protein 7.5 g/dL (6.5-8.0)
== END 2023-12-21 16:07 | disposition home or self-care (01) ==
LOC: HO.LAB 16:06
PROVIDERS: PCP Family Medicine; Visit Provider Family Medicine
DX: Z00.00 Encounter for general adult medical examination without abnormal findings (principal); K92.0 Hematemesis
CPT/HCPCS: 36415; 80053; 85025

== ENCOUNTER 2023-12-27 17:08 | Outpatient (REF) | payer OTHER, SELFPAY | END 2023-12-27 17:09 | disposition home or self-care (01) | LOC: HO.LNP 17:08 | PROVIDERS: Visit Provider Family Medicine | DX: K92.0 Hematemesis (principal) | CPT/HCPCS: 87338 ==

== ENCOUNTER 2024-01-04 09:00 | Outpatient (REF) | payer OTHER, SELFPAY ==
[2024-01-04 12:30] LABS: CT PCR NOT DETECTED (Not Detect.); NG PCR NOT DETECTED (Not Detect.)
[2024-01-05 14:48] LABS: BV Int Neg Control Negative (Negative); BV Int Pos Control Positive (Positive)
== END 2024-01-04 09:01 | disposition home or self-care (01) ==
LOC: HO.LAB 09:00
PROVIDERS: PCP Family Medicine; Visit Provider Advanced Practice Midwife
DX: N92.0 Excessive and frequent menstruation with regular cycle (principal); Z20.2 Contact with and (suspected) exposure to infections with a predominantly sexual mode of transmission
CPT/HCPCS: 0353U; 87480; 87510; 87660

== ENCOUNTER 2024-01-04 09:00 | Outpatient (AMB) | payer OTHER, SELFPAY ==
[2024-01-04 09:07] VITALS: BP 110/64; BMI 29.4
--- NOTE | 2024-01-04 09:07 | MHC.OFFVIS ---
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 Is last menstrual period known: Yes Last menstrual period: 12/14/23 HPI HPI Comments History of Present Illness Details She is a premenopausal woman presenting for annual examination. Doing well with no concerns. She tries to eat healthy and stays active with exercise. Regular monthly menses x 7d, HMB 4-5d/7d. Currently is sexually active w/. She denies vaginal itching and irritation. STI screening offered; she accepts. Denies family history of breast, ovarian or colon cancer. Last pap smear 2022, negative. Mammogram: not UTD. [facility] Medical History Hx of cardiac murmur Deficient knowledge of leg surgery Surgical History H/O colonoscopy Hx of varicose vein ligation History of tubal ligation Family History Father No problems noted. Sister No problems noted. Sister No problems noted. 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 Current occupational exposures/hazards: No Cognitive needs: No Hearing needs: No Vision needs: No Female Reproductive History Menstrual Date of last menstrual period: 12/14/23 control method: permanent sterilization Permanent Sterilization: BTL Total pregnancies: 2 Full term: 2 Number of Living Children: 2 Date of last pap smear: 01/01/23 (neg pap and hpv) Date of Mammogram: 08/15/22 (Birad 1) Review of Systems Const All systems reviewed & are unremarkable except as noted in HPI and below Reports as per HPI Eyes Reports no additional complaints ENT Reports no additional complaints Card Reports no additional complaints Resp Reports no additional complaints GI Reports as per HPI and Reports no additional complaints Reports as per HPI Musc Reports no additional complaints Skin/Breast Reports as per HPI Neuro Reports no additional complaints Psych Reports no additional complaints Endo Reports no additional complaints Carrillo/Lymph Reports no additional complaints Aller/Immun Reports no additional complaints Physical Exam Vital Signs: Last Vital Signs BP 110/64 01/04/24 09:07 BMI result Body Mass Index 29.4 Const General: cooperative, healthy appearing, no acute distress, well developed and alert Orientation/consciousness: patient oriented x3 HEENT Head: Yes normal to inspection Eyes General: appearance normal, both eyes and all related structures Neck Neck: Yes normal visual inspection Thyroid: Thyroid normal Chest Chest palpation & inspection: normal inspection of the chest and other (no puckering, dimpling, peau de orange, retraction, discharge, masses) Breast/axilla inspection: normal inspection of the breasts Breast/axilla palpation: normal palpation of the breasts Resp Effort & Inspection: normal respiratory effort GI Inspection: Yes normal to inspection Palpation (GI): Soft to palpation Rectal Exam - Female: deferred General: Yes bladder normal to palpation External Female Exam: normal external appearance and normal appearance of the urethra Speculum Exam - Vagina: normal appearance of the vagina, normal palpation and normal vaginal discharge Speculum Exam - Cervix: normal appearance of the cervix and normal palpation Bimanual exam- vagina & uterus: normal bimanual exam, normal palpation, uterine size normal, bladder normal to palpation, normal palpation and non-tender (RV) Bimanual Exam- Adnexa, other: no masses Skin General skin exam: no rashes or lesions noted Rashes: no rashes Neuro General: patient oriented x3 Cognition (Neuro): normal cognition Extrem General: Yes normal to inspection Psych Attitude: cooperative Thought process: Normal thought process present Assessment & Plan Assessment & Plan (1) Encounter for well woman exam with routine gynecological exam: Code(s): Z01.419 - Encounter for gynecological examination (general) (routine) without abnormal findings (2) Heavy menses: Code(s): N92.0 - Excessive and frequent menstruation with regular cycle Qualifiers: Menorrhagia type: with regular cycle Qualified Code(s): N92.0 - Excessive and frequent menstruation with regular cycle Plan Discussed: Current recommendations for pap smears per ASCCP guidelines. Breast awareness and periodic breast exams. Maintain a healthy lifestyle including a well balanced diet and routine exercise. Workup for heavy menstrual bleeding to include ultrasound and labs return to the office for a follow-up possible endometrial biopsy. Mammogram yearly. Colonoscopy >45, or at risk sooner. Patient verbalizes understanding and agrees to the plan of care. She was given opportunity to ask questions and all questions were answered to the best of my ability. RTO in one year for annual decorator consultant examination. This note is constructed using voice recognition software. While every effort has been made to ensure accuracy, principal database developer errors may have been included. Orders: Orders MM tomosynthesis screening BI Today Z12.31 - Encounter for screening mammogram for malignant neoplasm of breast US pelvic and transvaginal Today N92.0 - Excessive and frequent menstruation with regular cycle Complete Blood Count no Diff Today N92.0 - Excessive and frequent menstruation with regular cycle Bacterial Vaginosis Panel Today N92.0 - Excessive and frequent menstruation with regular cycle CT NG by PCR Today N92.0 - Excessive and frequent menstruation with regular cycle Coding Level of Care Code Est Pt Prev Care 40-64y(91376) Diagnoses Encounter for well woman exam with routine gynecological exam Z01.419 Menorrhagia with regular cycle N92.0 Menorrhagia type: with regular cycle
== END 2024-01-04 10:31 | disposition home or self-care (01) ==
LOC: HO.HWS 09:00
PROVIDERS: PCP Family Medicine; Visit Provider Advanced Practice Midwife
DX: Z01.419 Encounter for gynecological examination (general) (routine) without abnormal findings (principal); N92.0 Excessive and frequent menstruation with regular cycle
CPT/HCPCS: 99396

== ENCOUNTER 2024-01-04 09:29 | Outpatient (REF) | payer OTHER, SELFPAY | END 2024-01-04 09:30 | disposition home or self-care (01) | LOC: HO.LNP 09:29 | PROVIDERS: Visit Provider Advanced Practice Midwife | DX: Z13.89 Encounter for screening for other disorder (principal) ==

== ENCOUNTER 2024-01-04 13:58 | Outpatient (AMB) | payer OTHER, SELFPAY ==
--- NOTE | 2024-01-04 14:03 | MHC.OFFVIS ---
Intake Intake Visit Reasons: Follow up IBS Intake Note: Patient follow up for IBS. Patient cc: between diarrhea and constipation. Denies any other GI issues. Loading Machine Adjuster Required: No Accompanied by: Self / Same As Patient Allergies No Known Allergies [No Known Allergies*] Allergy (Verified 01/04/24 14:04) general anesthesia Adverse Reaction (Severe, Uncoded 12/20/23 14:26) Blood pressure dropped very low. HPI HPI Comments History of Present Illness Details A 43 y/o female seen by PCP with 2 episodes of -hemetemisis-she says she vomited twice in role however has had no further or if symptoms Labs/ cbc normal, HP - negative hemetemisis- she says she vomited x 2 and noted obvious blood'- she has not had any further issues- PCP sent omeprazole and zofran- she never took the zofran- takes ppi prn Alternating stool pattern dicyclomine is helpful- however causes her to be drowsy-so does not take during the week-this is typical for her. Over all she is feeling better- however she has a very stressful job- she is having diarrhea - worsens with menses- No fever, no chills no nausea, vomiting hematemesis or hematochezia PFSH Medical History Hx of cardiac murmur Deficient knowledge of leg surgery Surgical History H/O colonoscopy Hx of varicose vein ligation History of tubal ligation Family History Father No problems noted. Sister No problems noted. Sister No problems noted. 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 Current occupational exposures/hazards: No Cognitive needs: No Hearing needs: No Vision needs: No Review of Systems Const All systems reviewed & are unremarkable except as noted in HPI and below GI Denies abdominal pain, Reports hematochezia and Reports diarrhea Psych Reports anxiety and Reports other (Stress) Physical Exam Const General: cooperative, healthy appearing and anxious Orientation/consciousness: patient oriented x3 Limitations: no limitations Resp Effort & Inspection: normal respiratory effort and able to speak in complete sentences Neuro General: patient oriented x3 Psych Appearance: grossly normal and well kempt Speech and movement: Clear speech present Affect: Anxious affect present Attitude: cooperative Thought process: Normal thought process present Thought content: Normal thought content present Assessment & Plan Assessment & Plan (1) Chronic diarrhea: Comment: Anxious, job stress-is hopeful for job [id number] Code(s): K52.9 - Noninfective gastroenteritis and colitis, unspecified Plan: Reassurance, support Plan Will update labs stool studies-to be sure enough to overlook any underlying causes Orders: Orders GI Panel 01/04/24 R19.7 - Diarrhea, unspecified CDiff Gene PCR 01/04/24 R19.7 - Diarrhea, unspecified Thyroid Stimulating Hormone 01/04/24 R19.8 - Other specified symptoms and signs involving the digestive system and abdomen Calprotectin, Fecal 01/04/24 R19.7 - Diarrhea, unspecified Lactoferrin, Fecal, Quant. 01/04/24 K52.9 - Noninfective gastroenteritis and colitis, unspecified Leukocytes Stool Qualitative 01/04/24 R19.7 - Diarrhea, unspecified C Reactive Protein 01/04/24 K52.9 - Noninfective gastroenteritis and colitis, unspecified Endomysial IgA rflx Titer 01/04/24 K52.9 - Noninfective gastroenteritis and colitis, unspecified Transglutaminase IgA 01/04/24 R19.7 - Diarrhea, unspecified Patient Instructions: Stress reduction- Labs Stool studies Coding Level of Care Code Est Pt Level 3 (26992) Diagnoses Chronic diarrhea K52.9 Time Spent (min) 30
== END 2024-01-04 14:57 | disposition home or self-care (01) ==
PROVIDERS: PCP Family Medicine; Visit Provider Physician Assistant
DX: K52.9 Noninfective gastroenteritis and colitis, unspecified (principal)
CPT/HCPCS: 99213

== ENCOUNTER 2024-01-11 14:56 | Outpatient (REF) | payer OTHER, SELFPAY ==
--- NOTE | ~2024-01-11 | US_ITS ---
EXAMINATION: US PELVIS AND TRANSVAGINAL CLINICAL INFORMATION: Excessive and frequent menstruation. Vaginal bleeding. Last menstrual period 01/09/2024. COMPARISON: None available. TECHNIQUE: Ultrasound of the pelvis is performed using both transabdominal and transvaginal transducers along with Doppler. Transvaginal imaging is performed due to inadequate visualization transabdominally. FINDINGS: The uterus measures 12.0 x 5.2 x 6.2 cm, volume 203.5 mL. The uterus is diffusely heterogeneous in echotexture. Hypoechoic uterine areas characteristic of fibroids measure 0.7 x 0.6 x 0.7 cm and 0.7 x 0.6 x 0.7 cm. Endometrial thickness is 2.4 mm, although visualization of the endometrium is limited due to uterine heterogeneity. No significant free fluid. Right ovary measures 3.1 x 1.6 x 2.4 cm, volume 4.6 mL and is unremarkable. Left ovary measures 1.9 x 1.4 x 2.6 cm, volume 3.4 mL and is unremarkable. US/US pelvic and transvaginal IMPRESSION: 1. Heterogeneous uterus with subcentimeter fibroids. 2. Endometrial thickness is 2.4 mm, although visualization of the endometrium is limited due to uterine heterogeneity.
== END 2024-01-11 14:57 | disposition home or self-care (01) ==
LOC: HO.US 14:56
PROVIDERS: PCP Family Medicine; Visit Provider Obstetrics & Gynecology
DX: N92.0 Excessive and frequent menstruation with regular cycle (principal)
CPT/HCPCS: 76830; 76856

== ENCOUNTER 2024-11-20 13:02 | Outpatient (AMB) | payer OTHER, SELFPAY ==
--- NOTE | 2024-11-20 13:02 | MHC.OFFWIV ---
Intake Vital Signs 11/20/24 13:05 Height 5 ft 2 in Weight 172 lb BMI 31.5 BP 124/72 Blood Pressure Location Rt brachial Position Sitting Respiration 12 Pulse 71 Pulse Source Pulse Oximeter Temp 97.7 F Temp Source Oral Pulse Oximetry (%) 98 Oxygen Delivery Method Room Air Intake Visit Reasons: RIGHT EAR PAIN/COLD SYMPTOMS Intake Note: Patient complaining of right earache, bodyaches, congestion x 1 week Patient Tobacco Use Status: Never used Tobacco Allergies No Known Allergies [No Known Allergies*] Allergy (Verified 11/20/24 13:18) general anesthesia Adverse Reaction (Severe, Uncoded 11/20/24 13:18) Blood pressure dropped very low. Medication List - Last Reconciled 11/20/24 by TERRENCE Saldana No Known Home Meds Do you need a note to return to daycare/school/sports/work: No HPI HPI Comments History of Present Illness Details History of Present Illness The patient is a 44-year-old female presenting with complaints of right ear pain and sinus congestion. The symptoms began approximately one week ago. The patient describes the ear pain as accompanied by a popping sensation similar to what is experienced during airplane travel, localized to the right ear. There is no report of sore throat, although the patient notes an itchy sensation. + sinus pain over R cheek/teeth. The patient has not experienced fever, chills, or a significant cough. The only intervention attempted has been Tylenol, which provided temporary relief of symptoms. The patient mentions that this pain extends in the area surrounding the ear. No prior medical care has been sought for this condition before the present visit. Exam Awake alert NAD Sclera and conjunctiva clear bilat Nares patent, turbinates erythematous and edematous bilat R>L, + R max sinus tenderness with palpation TM intact w/ clouding on L, + bulging and erythema w/ loss of landmarks on R MMM, pharynx WNL RRR LS CTAB Plan - Prescribe amoxicillin-clavulanate Augmentin) for a duration of seven days to treat acute otitis media and acute sinusitis. Dosage to be taken twice daily with meals to minimize gastrointestinal upset. Patient was informed and verbally consented to the use of an ambient scribe for clinic note documentation during this visit. Discussion Notes I discussed with the patient that her symptoms are indicative of an acute otitis media and possibly concurrent sinusitis, both of bacterial origin. I recommended initiating treatment with Augmentin, a penicillin-based antibiotic, due to its efficacy in treating such infections. The patient was advised regarding the importance of completing the full course of antibiotics over seven days, even if symptoms improve earlier, to ensure proper eradication of the infection. I explained that the fullness and popping sensations in the ear might persist for some weeks, as fluid takes time to resolve, and this does not necessarily indicate persistent infection. The patient was instructed that should symptoms like fever, chills, or a worsening condition arise, a follow-up visit would be necessary. The prescription was electronically sent to her preferred pharmacy for prompt collection. Patient Instructions - Take the prescribed Augmentin twice daily with food. - Complete the full seven-day course of the antibiotic, even if feeling better before completion. - Monitor for any worsening of symptoms such as fever or chills, and seek medical attention if they occur. - Be aware that ear fullness and popping may persist and like a normal recovery process. - Avoid pinching your nose to relieve ear fullness until symptoms significantly improve. - Contact the pharmacy in advance to ensure prescription readiness. PFSH Medical History Hx of cardiac murmur Deficient knowledge of leg surgery Surgical History H/O colonoscopy Hx of varicose vein ligation History of tubal ligation Family History Father No problems noted. Sister No problems noted. Sister No problems noted. 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 Current occupational exposures/hazards: No Cognitive needs: No Hearing needs: No Vision needs: No Physical Exam Vital Signs: Last Vital Signs Temp 97.7 F 11/20/24 13:05 Pulse 71 11/20/24 13:05 Resp 12 11/20/24 13:05 BP 124/72 11/20/24 13:05 Pulse Ox 98 11/20/24 13:05 Oxygen Delivery Method Room Air 11/20/24 13:05 BMI result Body Mass Index 31.5 Assessment & Plan Assessment & Plan (1) Otitis media, right: Code(s): H66.91 - Otitis media, unspecified, right ear Qualifiers: Otitis media type: suppurative Chronicity: acute Recurrence: non-recurrent Spontaneous tympanic membrane rupture: without spontaneous rupture Qualified Code(s): H66.001 - Acute suppurative otitis media without spontaneous rupture of ear drum, right ear (2) Acute bacterial sinusitis: Code(s): J01.90 - Acute sinusitis, unspecified; B96.89 - Other specified bacterial agents as the cause of diseases classified elsewhere Plan . Medications: New amoxicillin-pot clavulanate 875-125 mg 1 tab PO BID 7 days 14 tabs 0RF Patient Instructions: What Is It? Sinuses are air-filled spaces behind the bones of the upper face: between the eyes and behind the forehead, nose and cheeks. The lining of the sinuses are made up of cells with tiny hairs on their surfaces called cilia. Other cells in the lining produce mucus. The mucus traps germs and pollutants and the cilia push the mucus out through narrow sinus openings into the nose. When the sinuses become inflamed or infected, the mucus thickens and clogs the openings to one or more sinuses. Fluid builds up inside the sinuses causing increased pressure. Also bacteria can become trapped, multiply and infect the lining. This is sinusitis. Prevention There are some measures you can take to decrease your risk of developing sinusitis. If you smoke cigarettes, you should quit. The smoke can irritate nasal passageways and increase the likelihood of infection. Nasal allergies can trigger sinus infections, too. By identifying the allergen (the substance causing the allergic reaction) and avoiding it, you can help prevent sinusitis. If you have congestion from a cold or allergies, the following may help to reduce the risk of developing sinusitis: Drink lots of water. This thins nasal secretions and keeps mucous membranes moist. Use steam to soothe nasal passages. Breathe deeply while standing in a hot shower, or inhale the vapor from a basin filled with hot water while holding a towel over your head. Avoid blowing your nose with great force, which can push bacteria into the sinuses. Some doctors advise periodic home nasal washings to clear secretions. This may help prevent, and also treat, sinus infections. Treatment Many sinus infections improve without treatment. However, several medications may speed recovery and reduce the chance that an infection will become chronic. Decongestants - Congestion often triggers sinus infections, and decongestants can open the sinuses and allow them to drain. Several are available: Pseudoephedrine (Sudafed) is available without prescription, alone or in combination with other medications in multi-symptom cold and sinus remedies. Pseudoephedrine can cause insomnia, racing pulse and jitteriness. Do not use if you have high blood pressure or a heart condition. Phenylephrine (such as Sudafed PE) is an alternative tqpk-utp-[id number] oral decongestant. If you take products containing oral phenylephrine, check with the pharmacist to be certain there is no interaction with other medications you take. Oxymetazoline ([place] and others) and phenylephrine (David-Synephrine and others) are found in nasal sprays. They are effective and may be less likely to cause the side effects seen with pseudoephedrine. However, using a nasal decongestant for more than three days can cause worse symptoms when you stop the medication. This is called the rebound effect. Antihistamines - These medications help to relieve the symptoms of nasal allergies that lead to inflammation and infections. However, some doctors advise against using antihistamines during a sinus infection because they can cause excessive drying and slow the drainage process. Pxsd-ohd-pjvsyhz antihistamines include diphenhydramine (Benadryl and others), chlorpheniramine (Chlor-Trimeton and others) and loratadine (Claritin). Fexofenadine (Shonna) and cetrizine (Zyrtec) are available by prescription. Nasal steroids - Anti-inflammatory sprays such as mometasone (Nasonex) and fluticasone (Flonase), both available by prescription, reduce swelling of nasal membranes. Like antihistamines, nasal steroids can be most useful for those who have nasal allergies. Nasal steroids tend to produce less drying than antihistamines. Unlike nasal decongestants, nasal steroids can be used for prolonged periods. Saline nasal sprays - These salt-water sprays are safe to use and can provide some relief by adding moisture to the nasal passages, thinning mucus secretions and helping to flush out any bacteria that may be present. Pain relievers - Acetaminophen (Tylenol), ibuprofen (Advil, Motrin and others) or naproxen (Aleve) can be taken sinus pain. Antibiotics - Your doctor may prescribe an antibiotic if he or she suspects that a bacterial infection is causing your sinusitis. If you start taking an antibiotic, complete the entire course so that the infection is completely killed off. Not all cases of sinusitis require antibiotic treatment: Talk with your doctor about whether an antibiotic is right for you. Keep in mind that antibiotics can cause side effects, such as allergic reactions, rash and diarrhea. In addition, overusing antibiotics eventually leads to the spread of bacteria that no longer can be killed by the most commonly prescribed antibiotics. When To Call A Professional Contact a doctor if you experience facial pain along with a headache and fever, cold symptoms that last longer than seven to 10 days, or persistent green discharge from the nose. If your symptoms don't improve within a week of beginning treatment, call your doctor. Call sooner if symptoms are getting worse. If you have repeated bouts of acute sinusitis, you may have allergies or another treatable cause of sinus congestion. Ask your doctor for advice. Coding Level of Care Code Est Pt Level 3 (04620) Diagnoses Non-recurrent acute suppurative otitis media of right ear without spontaneous rupture of tympanic membrane H66.001 Otitis media type: suppurative Chronicity: acute Recurrence: non-recurrent Spontaneous tympanic membrane rupture: without spontaneous rupture Acute bacterial sinusitis J01.90; B96.89
[2024-11-20 13:05] VITALS: BP 124/72; PULSE 71; RESP 12; TEMP 36.5; O2SAT 98; BMI 31.5
== END 2024-11-20 13:25 | disposition home or self-care (01) ==
PROVIDERS: PCP Family Medicine; Visit Provider Nurse Practitioner Family
DX: H66.001 Acute suppurative otitis media without spontaneous rupture of ear drum, right ear (principal); J01.90 Acute sinusitis, unspecified; B96.89 Other specified bacterial agents as the cause of diseases classified elsewhere

== ENCOUNTER 2025-01-01 09:16 | Outpatient (AMB) | payer OTHER, SELFPAY ==
[2025-01-01 09:30] VITALS: BP 122/80; PULSE 77; O2SAT 98
--- NOTE | 2025-01-01 09:30 | AM.OFFWIN_ITS ---
Intake Vital Signs 01/01/25 09:30 Weight 177 lb BP 122/80 Blood Pressure Location Rt brachial Position Sitting Pulse 77 Pulse Source Pulse Oximeter Pulse Oximetry (%) 98 Oxygen Delivery Method Room Air Intake Visit Reasons: EP-rt wrist pain Intake Note: Patient here for right hand and wrist pain that has been present since last night. Patient Tobacco Use Status: Never used Tobacco Allergies No Known Allergies [No Known Allergies*] Allergy (Verified 01/01/25 09:36) general anesthesia Adverse Reaction (Severe, Uncoded 01/01/25 09:36) Blood pressure dropped very low. Do you need a note to return to daycare/school/sports/work: Yes HPI HPI Comments History of Present Illness Details History of Present Illness The patient is a 44-year-old female presenting with excruciating pain in her right hand. She has a previous history of hand pain addressed by her primary care physician. The current episode emerged sharply last , with the intensity peaking the night before consultation, disrupting sleep. Pain is characterized as sharp and radiating up the arm, severely impacting hand function. Initial remedies included heating pad application and Advil, offering some symptom alleviation. Though there is no formal carpal tunnel syndrome diagnosis, symptoms are suggestive, notably aggravated by sustained computer use at her job. She states she has difficulty in hand closure, with pain amplification, highlighting functional limitations. Physical Exam General: Cooperative, healthy appearing, comfortable, no acute distress and well developed Orientation: Patient oriented x3 Limitations: Limited hand movement due to pain Head: Normal to inspection Ears: Hearing grossly normal bilaterally Nose: Normal external nose present Face and sinus: Normal facial exam Eyes: Appearance normal, both eyes and all related structures Neck: Normal visual inspection and Yes full ROM Respiratory: Normal respiratory effort and able to speak in complete sentences. 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 Sister No problems noted. Sister No problems noted. 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 Current occupational exposures/hazards: No Cognitive needs: No Hearing needs: No Vision needs: No Review of Systems Const All systems reviewed & are unremarkable except as noted in HPI and below Physical Exam Vital Signs: Last Vital Signs Pulse 77 01/01/25 09:30 BP 122/80 01/01/25 09:30 Pulse Ox 98 01/01/25 09:30 Oxygen Delivery Method Room Air 01/01/25 09:30 Assessment & Plan Assessment & Plan (1) Carpal tunnel syndrome on right: Code(s): G56.01 - Carpal tunnel syndrome, right upper limb Plan: The possible carpal tunnel syndrome will be managed conservatively with a wrist brace recommended for nighttime wear to reduce wrist flexion. Naproxen, at a dosage of 500 mg, has been prescribed for pain and inflammation, enhancing muscu loskeletal relief. The patient is informed about conservative management's effectiveness and the potential for orthopedic consultation if symptoms remain unresolved. Ice application is advocated during the day for inflammation control. The importance of balancing brace use to maintain mobility is emphasized. Patient was informed and verbally consented to the use of an ambient scribe for clinic note documentation during this visit. Orders: Referrals Orthopedics Referral G56.01 - Carpal tunnel syndrome, right upper limb Medications: New naproxen 500 mg PO Q12H PRN 20 tabs 0RF pain Coding Level of Care Code Est Pt Level 4 (86125) Diagnoses Carpal tunnel syndrome on right G56.01
== END 2025-01-01 10:01 | disposition home or self-care (01) ==
PROVIDERS: PCP Family Medicine; Visit Provider Physician Assistant
DX: G56.01 Carpal tunnel syndrome, right upper limb (principal)

== ENCOUNTER → 2025-01-01 09:16 | Outpatient (BNVA) | payer OTHER, SELFPAY | PROVIDERS: PCP Family Medicine ==

== ENCOUNTER 2025-01-31 09:22 | Outpatient (REF) | payer OTHER, SELFPAY ==
--- NOTE | 2025-01-31 09:25 | EMG_ITS ---
Chief complaint: Hand numbness Reason for referral: Evaluate for Carpal Tunnel Syndrome Referred by: Ludwig DURAN Procedure done: Right upper extremity NCS/EMG Precautions and/or limitations: None The limb temperature was monitored continuously and remained between 32-36 degrees C during the performance of the NCS. Nerve Conduction Studies Anti Sensory Summary Table ?Stim Site NR Onset (ms) Norm Onset (ms) Peak (ms) Norm Peak (ms) O-P Amp (?V) Norm O-P Amp Site1 Site2 Delta-0 (ms) Dist (cm) Jonathon (m/s) Norm Jonathon (m/s) Right Median Anti Sensory (2nd Digit) Wrist ? 2.7 3.6 <3.6 15.2 >10 Wrist 2nd Digit 2.7 14.0 52 Right Ulnar Anti Sensory (5th Digit) Wrist ? 2.3 2.9 <3.7 50.6 >15.0 Wrist 5th Digit 2.3 14.0 61 Motor Summary Table ?Stim Site NR Onset (ms) Norm Onset (ms) O-P Amp (mV) Norm O-P Amp iAmp (mV) Amp (1st) (%) Site1 Site2 Delta-0 (ms) Dist (cm) Jonathon (m/s) Norm Jonathon (m/s) Right Median Motor (Abd Poll Brev) Wrist ? 3.7 <3.9 10.6 >4.5 11.8 100.0 Elbow Wrist 3.5 19.0 54 >45 Elbow ? 7.2 10.4 11.8 98.1 Right Ulnar Motor (Abd Dig Minimi) Wrist ? 2.2 <3.0 10.9 >5 13.0 100.0 B Elbow Wrist 2.7 18.5 69 >45 B Elbow ? 4.9 10.6 12.8 97.2 A Elbow B Elbow 1.3 10.0 77 >45 A Elbow ? 6.2 10.8 13.0 99.1 Comparison Summary Table ?Stim Site NR Peak (ms) Norm Peak (ms) P-T Amp (?V) Site1 Site2 Delta-P (ms) Norm Delta (ms) Right Median/Radial Dig I Comparison (Digit 1 - 10cm) Median ? 3.5 <2.9 25.9 Median Radial 1.1 Radial ? 2.4 <2.8 25.2 EMG ?Side Muscle Nerve Root Ins Act Fibs Psw Amp Dur Poly Recrt Int Pat Comment Right 1stDorInt Ulnar C8-T1 Nml Nml Nml Nml Nml 0 Nml Complete Right FlexCarRad Median C6-7 Nml Nml Nml Nml Nml 0 Nml Complete Right Biceps Musculocut C5-6 Nml Nml Nml Nml Nml 0 Nml Complete Right Triceps Radial C6-7-8 Nml Nml Nml Nml Nml 0 Nml Complete Right Deltoid Axillary C5-6 Nml Nml Nml Nml Nml 0 Nml Complete FINDINGS: Prolonged interlatency difference between right median sensory nerve. Otherwise, all other nerves tested were within normal. Concentric needle EMG was performed in selected muscles of the right upper extremity. Study did not reveal signs of electric abnormalities as shown in the table above. IMPRESSION: 1. This is a minimally abnormal study. 2. There is electrodiagnostic evidence for right very mild/borderline median neuropathy at the wrist, could still be consistent with carpal tunnel syndrome. 3. There is no electrodiagnostic evidence for ulnar neuropathy, brachial plexopathy, or cervical radiculopathy. Thank you for your kind referral. Farrah Kimble MD, PARAM Board Certified, [place] Board [employer] and Rehabilitation (ABPMR) Board Certified, [place] Board of Electrodiagnostic Medicine (ABEM) COD[place] [id number] [facility]
== END 2025-01-31 09:23 | disposition home or self-care (01) ==
LOC: HO.NEURO 09:22
PROVIDERS: PCP Family Medicine
DX: G56.11 Other lesions of median nerve, right upper limb (principal)
CPT/HCPCS: 95860; 95886; 95909

== ENCOUNTER → 2025-01-31 09:25 | Outpatient (BNV) | payer OTHER, SELFPAY | PROVIDERS: PCP Family Medicine; Visit Provider Physical Medicine & Rehabilitation | DX: G56.01 Carpal tunnel syndrome, right upper limb (principal) | CPT/HCPCS: 95886; 95909 ==

== ENCOUNTER 2025-02-07 12:30 | Outpatient (REF) | payer OTHER, SELFPAY | END 2025-02-07 12:31 | disposition home or self-care (01) | LOC: HO.MAMMO 12:30 | PROVIDERS: PCP Family Medicine; Visit Provider Family Medicine | DX: Z12.31 Encounter for screening mammogram for malignant neoplasm of breast (principal) | CPT/HCPCS: 77063; 77067 ==

== ENCOUNTER → 2025-02-07 12:45 | Outpatient (BNV) | payer OTHER, SELFPAY | PROVIDERS: PCP Family Medicine; Visit Provider Internal Medicine | DX: Z12.31 Encounter for screening mammogram for malignant neoplasm of breast (principal) | CPT/HCPCS: 77063; 77067 ==

== ENCOUNTER 2025-03-02 10:21 | Outpatient (AMB) | payer OTHER, SELFPAY ==
--- NOTE | 2025-03-02 10:24 | A.OFFVIS_ITS ---
Vital Signs 03/02/25 10:25 Height 5 ft 2 in Weight 177 lb BMI 32.4 Intake Visit Reasons: OV-Right upper extremity EMG F/U Intake Note: Yue is a 44 year old female who presents today for an EMG review of right upper extremity. Allergies No Known Allergies [No Known Allergies*] Allergy (Verified 03/02/25 10:26) general anesthesia Adverse Reaction (Severe, Uncoded 03/02/25 10:26) Blood pressure dropped very low. HPI HPI OV-Right upper extremity EMG F/U: Details: Yue is a 44 year old female who presents today for an EMG review of right upper extremity. [facility] Medical History Hx of cardiac murmur Deficient knowledge of leg surgery Surgical History H/O colonoscopy Hx of varicose vein ligation History of tubal ligation Family History Father No problems noted. Sister No problems noted. Sister No problems noted. 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 Normal sensation in the tips of all digits of the left hand today. No thenar or intrinsic wasting. Good APB muscle firing and good finger cross. Vascular: Capillary refill brisk. ROM: Patient can make a fist and extend all their digits. Skin: No lacerations or abrasions noted. General: No ecchymosis. No erythema or evidence of infection. Results Reviewed Results Reviewed: IMPRESSION: 1. This is a minimally abnormal study. 2. There is electrodiagnostic evidence for right very mild/borderline median neuropathy at the wrist, could still be consistent with carpal tunnel syndrome. 3. There is no electrodiagnostic evidence for ulnar neuropathy, brachial plexopathy, or cervical radiculopathy. Thank you for your kind referral. Farrah Kimble MD, PARAM Assessment & Plan Assessment & Plan (1) Carpal tunnel syndrome on right: Code(s): G56.01 - Carpal tunnel syndrome, right upper limb Category: Medical Plan 1. Right carpal tunnel syndrome Symptoms intermittent, not daily, worse at night Patient is educated about this condition Patient is educated about the typical treatment course At this time, patient states she would like to hold off on operative intervention for now Patient was educated on potential risks of prolonging treatment for carpal tunnel syndrome Patient understands these in his amenable to this plan Follow-up in 6 months to discuss right carpal tunnel release, sooner with any acute concerns Coding Level of Care Code New Pt Level 3 (55196) Diagnoses Carpal tunnel syndrome on right G56.01
[2025-03-02 10:25] VITALS: BMI 32.4
== END 2025-03-02 11:51 | disposition home or self-care (01) ==
LOC: HO.HOS 10:22
PROVIDERS: PCP Family Medicine
DX: G56.01 Carpal tunnel syndrome, right upper limb (principal)
CPT/HCPCS: 99203

== ENCOUNTER 2025-04-04 15:45 | Outpatient (REF) | payer OTHER, SELFPAY ==
[2025-04-04 20:44] LABS: Bacterial Vaginosis PCR NEGATIVE (Negative); Candida Group PCR NOT DETECTED (Not Detect); Candida glab krusei PCR NOT DETECTED (Not Detect); Trichomonas vaginalis PCR NOT DETECTED (Not Detect)
[2025-04-04 21:27] LABS: CT PCR NOT DETECTED (Not Detect.); NG PCR NOT DETECTED (Not Detect.)
== END 2025-04-04 15:46 | disposition home or self-care (01) ==
LOC: HO.LNP 15:45
PROVIDERS: PCP Family Medicine; Visit Provider Advanced Practice Midwife
DX: Z01.419 Encounter for gynecological examination (general) (routine) without abnormal findings (principal); N93.9 Abnormal uterine and vaginal bleeding, unspecified
CPT/HCPCS: 81515; 87491; 87591

== ENCOUNTER 2025-04-04 15:45 | Outpatient (AMB) | payer OTHER, SELFPAY ==
--- NOTE | 2025-04-04 15:46 | A.OFFVIS_ITS ---
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 HPI Comments Details: She is a premenopausal woman presenting for annual examination. Doing well with gynecological assistant concerns: increased discharge w/cramps, no odor, dysuria. Regular monthly menses, HMB 5/7d. Currently is sexually active. History of tubal ligation. She tries to eat healthy, exercise is limited due to knee pain. Denies family history of breast, ovarian or colon cancer. Last pap smear 2022, negative. Mammogram: 2024. [facility] [place] Medical History Encounter for well woman exam with routine gynecological exam Abnormal uterine bleeding (AUB) Fibroid Hx of cardiac murmur Deficient knowledge of leg surgery Surgical History H/O colonoscopy Hx of varicose vein ligation History of tubal ligation Family History Father No problems noted. Sister No problems noted. Sister No problems noted. 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 Current occupational exposures/hazards: No Cognitive needs: No Hearing needs: No Vision needs: No Female Reproductive History Menstrual Total pregnancies: 2 Full term: 2 Number of Living Children: 2 Date of last pap smear: 01/03/23 (negative pap smear, negative hpv ) Date of Mammogram: 02/07/25 (bi rad 1) Review of Systems Const All systems reviewed & are unremarkable except as noted in HPI and below Reports as per HPI Eyes Reports no additional complaints ENT Reports no additional complaints Card Reports no additional complaints Resp Reports no additional complaints GI Reports as per HPI and Reports no additional complaints Reports as per HPI Musc Reports no additional complaints Skin/Breast Reports as per HPI Neuro Reports no additional complaints Psych Reports no additional complaints Endo Reports no additional complaints Carrillo/Lymph Reports no additional complaints Aller/Immun Reports no additional complaints Physical Exam Vital Signs: Last Vital Signs BP 110/62 04/04/25 15:54 BMI result Body Mass Index 32.4 Const General: cooperative, healthy appearing, no acute distress, well developed and alert Orientation/consciousness: patient oriented x3 HEENT Head: Yes normal to inspection Eyes General: appearance normal, both eyes and all related structures Neck Neck: Yes normal visual inspection Thyroid: Thyroid normal Chest Chest palpation & inspection: normal inspection of the chest and other (no puckering, dimpling, peau de orange, retraction, discharge, masses) Breast/axilla inspection: normal inspection of the breasts Breast/axilla palpation: normal palpation of the breasts Resp Effort & Inspection: normal respiratory effort GI Inspection: Yes normal to inspection Palpation (GI): Soft to palpation Rectal Exam - Female: deferred General: Yes bladder normal to palpation External Female Exam: normal external appearance and normal appearance of the urethra Speculum Exam - Vagina: normal appearance of the vagina, normal palpation and normal vaginal discharge Speculum Exam - Cervix: Other cervical findings present (Anterior cervix) Bimanual exam- vagina & uterus: normal palpation, uterine size normal and bladder normal to palpation Bimanual Exam- Adnexa, other: no masses Skin General skin exam: no rashes or lesions noted Rashes: no rashes Neuro General: patient oriented x3 Cognition (Neuro): normal cognition Extrem General: Yes normal to inspection Psych Attitude: cooperative Thought process: Normal thought process present Assessment & Plan Assessment & Plan (1) Fibroid: Code(s): D21.9 - Benign neoplasm of connective and other soft tissue, unspecified Category: Medical (2) Abnormal uterine bleeding (AUB): Code(s): N93.9 - Abnormal uterine and vaginal bleeding, unspecified Category: Medical Plan: Workup for AUB UB to include pelvic ultrasound, TSH, CBC, endometrial biopsy. Endometrial biopsy, purpose for the procedure to rule out any abnormal uterine cells including atypia, precancer or cancer, preprocedure planning reviewed advised to take 3 Advil with food and fluids 1 hour before her appointment time. Counseled on treatment options hormonal, nonhormonal, surgical as last resort. Mirena booklet given. The patient expressed understanding and agreement with the plan of care. All of her questions and concerns were addressed to the best of my ability. Total time I personally spent on visit and management today: ?20 minutes. Time spent included review of pertinent office notes in the electronic health record; review of laboratory and imaging results; review of personal family medical history; performing physical exam; discussing diagnosis and plan of care with the patient; documenting the encounter in the EMR. (3) Encounter for well woman exam with routine gynecological exam: Code(s): Z01.419 - Encounter for gynecological examination (general) (routine) without abnormal findings Category: Medical Plan Discussed: Current recommendations for pap smears per ASCCP guidelines. Breast awareness and periodic breast exams. Mammogram yearly. Maintain a healthy lifestyle including a well balanced diet and routine exercise. Patient verbalizes understanding and agrees to the plan of care. She was given opportunity to ask questions and all questions were answered to the best of my ability. RTO in one year for annual gynecological assistant examination. This note is constructed using voice recognition software. While every effort has been made to ensure accuracy, mechatronics technician errors may have been included. Orders: Orders US pelvic and transvaginal Today N93.9 - Abnormal uterine and vaginal bleeding, unspecified CT NG by PCR Today N93.9 - Abnormal uterine and vaginal bleeding, unspecified Bacterial Vaginosis Panel Today N93.9 - Abnormal uterine and vaginal bleeding, unspecified Complete Blood Count no Diff Today N93.9 - Abnormal uterine and vaginal bleeding, unspecified Thyroid Stimulating Hormone Today N92.1 - Excessive and frequent menstruation with irregular cycle Coding Level of Care Code Est Pt Level 2 (80927) Est Pt Prev Care 40-64y(25798) Diagnoses Fibroid D21.9 Abnormal uterine bleeding (AUB) N93.9 Encounter for well woman exam with routine gynecological exam Z01.419
[2025-04-04 15:54] VITALS: BP 110/62; BMI 32.4
== END 2025-04-05 09:32 | disposition home or self-care (01) ==
LOC: HO.HWS 15:45
PROVIDERS: PCP Family Medicine; Visit Provider Advanced Practice Midwife
DX: Z01.419 Encounter for gynecological examination (general) (routine) without abnormal findings (principal); D21.9 Benign neoplasm of connective and other soft tissue, unspecified; N93.9 Abnormal uterine and vaginal bleeding, unspecified
CPT/HCPCS: 99212; 99396; 99459

== ENCOUNTER 2025-05-17 11:18 | Outpatient (REF) | payer OTHER, SELFPAY ==
--- NOTE | ~2025-05-17 | US_ITS ---
EXAMINATION: US PELVIS CLINICAL INFORMATION: N93.9 - Abnormal uterine and vaginal bleeding, unspecified COMPARISON: January 11, 2024 TECHNIQUE: Ultrasound of the pelvis is performed using both transabdominal and transvaginal transducers along with Doppler. Transvaginal imaging is performed due to inadequate visualization transabdominally. FINDINGS: Uterus: The uterus is retroflexed and measures 9.8 x 5.0 x 6.2 cm. The double wall endometrial thickness is 7 mm. Uterine echotexture is heterogeneous. Hypoechoic structures are seen in the deep myometrium of the body of the uterus. Upper uterine leiomyoma, intramural and submucosal, measures 8 x 6 x 8 mm, previously 7 x 6 x 7 mm. Intramural and submucosal leiomyoma in the mid body anterior to the endometrium is 7 x 5 x 7 mm, not imaged on the prior Adnexa: Both ovaries are visualized. There is normal color flow to the adnexa. There is no ovarian torsion. There is no pelvic ascites or fluid collection. Right ovary measures 2.9 x 2.2 x 1.7 cm. 16 mm dominant follicle Left ovary measures 3.3 x 2.2 x 2.2 cm. There is a punctate calcification with common tail artifact. US/US pelvic and transvaginal IMPRESSION: Uterine leiomyomas, as described above. Electronically signed by: Arnaldo Francisco MD 05/17/2025 12:23 PM EDT
== END 2025-05-17 11:19 | disposition home or self-care (01) ==
LOC: HO.US 11:18
PROVIDERS: PCP Family Medicine; Visit Provider Advanced Practice Midwife
DX: N93.9 Abnormal uterine and vaginal bleeding, unspecified (principal)
CPT/HCPCS: 76830; 76856

== ENCOUNTER → 2025-05-17 11:20 | Outpatient (BNV) | payer OTHER, SELFPAY | PROVIDERS: PCP Family Medicine; Visit Provider Radiology Diagnostic Radiology | DX: D25.9 Leiomyoma of uterus, unspecified (principal) | CPT/HCPCS: 76830; 76856 ==

== ENCOUNTER 2025-06-21 11:22 | Outpatient (REF) | payer OTHER, SELFPAY ==
[2025-06-21 12:53] LABS: Hematocrit 42.4 % (37.0-47.0); Hemoglobin 13.4 g/dl (12.0-16.0); Mean Corpuscular HGB Conc 31.6 g/dl (31.0-35.0); Mean Corpuscular Hemoglobin 26.6 pg (27.0-33.0); Mean Corpuscular Volume 84.1 fL (80.0-98.0); NRBC Abs Auto 0.000 X10*3/uL (0.0-0.012); NRBC Pct Auto 0.0 /100WBC (0.0-0.2); Platelet Count 323 X10*3/uL (160-400); Red Blood Count 5.04 X10*6/uL (4.20-5.50); White Blood Count 6.3 X10*3/uL (4.8-10.8)
[2025-06-21 13:38] LABS: Thyroid Stimulating Hormone 0.92 uIU/mL (0.32-4.0)
== END 2025-06-21 11:23 | disposition home or self-care (01) ==
LOC: HO.LAB 11:22
PROVIDERS: PCP Family Medicine; Visit Provider Advanced Practice Midwife
DX: N92.1 Excessive and frequent menstruation with irregular cycle (principal); N93.9 Abnormal uterine and vaginal bleeding, unspecified; Z32.02 Encounter for pregnancy test, result negative; Z98.51 Tubal ligation status
CPT/HCPCS: 36415; 81025; 84443; 85027

== ENCOUNTER 2025-06-21 11:22 | Outpatient (AMB) | payer OTHER, SELFPAY ==
--- NOTE | 2025-06-21 11:27 | A.OFFVIS_ITS ---
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 Is last menstrual period known: Yes Last menstrual period: 06/18/25 HPI Comments Details: Patient is here today for a follow up pelvic ultrasound, and EMB with Mirena inserted, history of AUB. She defers procedure today due to her cycle prefers to reschedule. Opts not to have a Mirena IUD for treatment. [facility] Medical History Encounter for well woman exam with routine gynecological exam Abnormal uterine bleeding (AUB) Fibroid Hx of cardiac murmur Deficient knowledge of leg surgery Surgical History H/O colonoscopy Hx of varicose vein ligation History of tubal ligation Family History Father No problems noted. Sister No problems noted. Sister No problems noted. 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 Current occupational exposures/hazards: No Cognitive needs: No Hearing needs: No Vision needs: No Female Reproductive History Menstrual Date of last menstrual period: 06/18/25 Review of Systems Const All systems reviewed & are unremarkable except as noted in HPI and below Endo Reports no additional complaints Physical Exam Vital Signs: Last Vital Signs BP 120/72 06/21/25 11:28 BMI result Body Mass Index 32.4 Const General: cooperative, healthy appearing and no acute distress Psych Appearance: well kempt Attitude: cooperative Thought process: Normal thought process present Results AMB Test Urine AMB Test Urine Negative Last Edit by CLARIBEL Barnard on 06/21/25 11:30 Results Reviewed Results Reviewed: Laboratory Last Values Tst Clinic Negative 06/21/25 11:[address] [address] Ultrasound Report Signed Patient: Yue Chaudhry MR#: [id number] : 1980 Acct:[id number] Age/Sex: 43 / F ADM Date: 01/11/24 Loc: HO.US Attending Dr: Matheus Reveles MD Ordering Physician: Alissa Liang CNM Date of Service: 01/11/24 Procedure(s): US pelvic and transvaginal Accession Number(s): [id number] cc: Tuan Christy MD; Alissa Liang CNM~ EXAMINATION: US PELVIS AND TRANSVAGINAL CLINICAL INFORMATION: Excessive and frequent menstruation. Vaginal bleeding. Last menstrual period 01/09/2024. COMPARISON: None available. TECHNIQUE: Ultrasound of the pelvis is performed using both transabdominal and transvaginal transducers along with Doppler. Transvaginal imaging is performed due to inadequate visualization transabdominally. FINDINGS: The uterus measures 12.0 x 5.2 x 6.2 cm, volume 203.5 mL. The uterus is diffusely heterogeneous in echotexture. Hypoechoic uterine areas characteristic of fibroids measure 0.7 x 0.6 x 0.7 cm and 0.7 x 0.6 x 0.7 cm. Endometrial thickness is 2.4 mm, although visualization of the endometrium is limited due to uterine heterogeneity. No significant free fluid. Right ovary measures 3.1 x 1.6 x 2.4 cm, volume 4.6 mL and is unremarkable. Left ovary measures 1.9 x 1.4 x 2.6 cm, volume 3.4 mL and is unremarkable. US/US pelvic and transvaginal IMPRESSION: 1. Heterogeneous uterus with subcentimeter fibroids. 2. Endometrial thickness is 2.4 mm, although visualization of the endometrium is limited due to uterine heterogeneity. 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 Counseled regarding Mirena use, efficacy for AUB. Reschedule EMB procedure, stressed importance of completing assessment for rule out abnormal cells of the endometrium including atypia, hyperplasia, precancer and cancer.. Discussed preprocedure planning anticipatory guidance, advised to take 3 ibuprofen with food and fluids 1 hour before her appointment time. The patient expressed understanding and agreement with the plan of care. All of her questions and concerns were addressed to the best of my ability. This note is constructed using voice recognition software. While every effort has been made to ensure accuracy, ventilation worker errors may have been included. Orders: Orders AMB HCG Urine Test Today N93.9 - Abnormal uterine and vaginal bleeding, unspecified Coding Level of Care Code Est Pt Level 2 (08597) Diagnoses Abnormal uterine bleeding (AUB) N93.9
[2025-06-21 11:28] VITALS: BP 120/72; BMI 32.4
== END 2025-06-21 11:57 | disposition home or self-care (01) ==
LOC: HO.HWS 11:23
PROVIDERS: PCP Family Medicine; Visit Provider Advanced Practice Midwife
DX: N93.9 Abnormal uterine and vaginal bleeding, unspecified (principal)
CPT/HCPCS: 99212

== ENCOUNTER 2025-06-26 10:53 | Outpatient (REF) | payer OTHER, SELFPAY | END 2025-06-26 10:54 | disposition home or self-care (01) | LOC: HO.LNP 10:53 | PROVIDERS: PCP Family Medicine; Visit Provider Advanced Practice Midwife | DX: N93.9 Abnormal uterine and vaginal bleeding, unspecified (principal); Z98.51 Tubal ligation status; Z32.02 Encounter for pregnancy test, result negative | CPT/HCPCS: 58100; 81025; 88305 ==

== ENCOUNTER 2025-06-26 10:53 | Outpatient (AMB) | payer OTHER, SELFPAY ==
[2025-06-26 10:55] VITALS: BMI 32.4
--- NOTE | 2025-06-26 10:55 | A.OFFVIS_ITS ---
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 HPI Comments Details: Patient is here today for an endometrial biopsy procedure due to history of abnormal uterine bleeding. UPT is negative. History of tubal ligation. H istory of fibroids. [facility] Medical History Encounter for well woman exam with routine gynecological exam Abnormal uterine bleeding (AUB) Fibroid Hx of cardiac murmur Deficient knowledge of leg surgery Surgical History H/O colonoscopy Hx of varicose vein ligation History of tubal ligation Family History Father No problems noted. Sister No problems noted. Sister No problems noted. 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 Current occupational exposures/hazards: No Cognitive needs: No Hearing needs: No Vision needs: No Review of Systems Const All systems reviewed & are unremarkable except as noted in HPI and below Physical Exam Vital Signs: BMI result Body Mass Index 32.4 Const General: cooperative, healthy appearing and no acute distress Orientation/consciousness: patient oriented x3 GI Inspection: Yes normal to inspection Palpation (GI): Soft to palpation and Other GI palpation findings present (Nontender) Rectal Exam - Female: visual inspection normal General: Yes bladder normal to palpation External Female Exam: normal appearance of the urethra Speculum Exam - Vagina: normal appearance of the vagina, normal palpation and normal vaginal discharge Speculum Exam - Cervix: normal appearance of the cervix and normal palpation Bimanual exam- vagina & uterus: normal bimanual exam, normal palpation, uterine size normal, bladder normal to palpation, normal palpation, uterine shape normal (RV) and non-tender Bimanual Exam- Adnexa, other: normal adnexae Neuro General: patient oriented x3 Office Procedures Endometrial Biopsy Details: The patient is here today for an endometrial biopsy due to AUB to rule out any pathology including atypical, hyperplasia or cancer cells of the uterus. She was counseled regarding anticipatory guidance for the procedure including the risks for pain, infection, bleeding, perforation, potential injury to the tissues may include the cervix, uterus, tubes, bladder and bowels. These injuries may include further treatment and evaluation including surgery, blood transfusions, antibiotics, hospitalizations and anesthesia. Permanent injury and scarring can occur. She was consented for the procedure, and the consent forms were signed. She is agreeable to have the procedure today. All questions were answered. Endometrial Biopsy Procedure: The patient was placed in the dorsal lithotomy position and a sterile speculum inserted. Using aseptic technique for the procedure. The cervix was cleansed with Betadine x 3 swabs. A single toothed tenaculum was placed on the cervix for stabilization and the uterus was sounded to 8 cm with a 4mm pipelle, and tissue sample obtained. Minimal bleeding was observed. The tissue sample was placed in formalin in a patient labeled container by staff assisting and sent to the pathology department for processing and interpretation. The patient tolerate the procedure well and was in good condition when leaving the department. Endometrial Biopsy Post Procedure Care: Nothing in the vagina including: tampons, douching or intimacy until all the bleeding has subsided. There may be some post procedure bleeding for several days, this bleeding is usually light and may turn to a light brown or pink color. Mild cramps may occurs. Nothing in the vaginal including: tampons, douching, or intimacy until all the bleeding has subsided. You may take an over the counter mild analgesic such as Tylenol or Advil (if no allergies) per the manufactures recommendation on dosing, frequency, and follow the directions completely. Call the office if any: fever (over 100.4), flu like symptoms, abdominal pain (worse than cramping), foul smelling, infected appearing vaginal discharge, or heavy bleeding. If indicated: Use condoms to prevent and STI's, and only after the bleeding has stopped completely. Return to the office in 2 weeks for results and plan of care. This note is constructed using voice recognition software. While every effort has been made to ensure accuracy, interior design professional errors may have been included. [id number] Biopsy Results AMB Test Urine AMB Test Urine Negative Last Edit by CLARIBEL Barnard on 06/26/25 11:04 Results Reviewed Results Reviewed: Laboratory Last Values Tst Clinic Negative 06/26/25 11:04 Assessment & Plan Assessment & Plan (1) Abnormal uterine bleeding (AUB): Code(s): N93.9 - Abnormal uterine and vaginal bleeding, unspecified Category: Medical Plan EMB procedure completed today. See procedure notes. Counseled regarding option treatment for abnormal uterine bleeding including the Mirena IUD as a standard of care, will consider anticipatory guidance for procedure reviewed today advised to have something to eat and drink and take 3 Advil 1 hour before her procedure time. Schedule follow up results appointment, additional time for Mirena inserted if indicated. The patient expressed understanding and agreement with the plan of care. All of her questions and concerns were addressed to the best of my ability. This note is constructed using voice recognition software. While every effort has been made to ensure accuracy, interior design professional errors may have been included. Orders: Orders AMB HCG Urine Test Today N93.9 - Abnormal uterine and vaginal bleeding, unspecified Surgical Today N93.9 - Abnormal uterine and vaginal bleeding, unspecified Coding Level of Care Code Procedure Only Diagnoses Abnormal uterine bleeding (AUB) N93.9 CPT Codes Endometrial Biopsy - CPT: 12277-[id number] Biopsy ([id number])
== END 2025-06-26 11:58 | disposition home or self-care (01) ==
LOC: HO.HWS 10:53
PROVIDERS: PCP Family Medicine; Visit Provider Advanced Practice Midwife
DX: N93.9 Abnormal uterine and vaginal bleeding, unspecified (principal)
CPT/HCPCS: 58100

== ENCOUNTER 2025-07-11 10:14 | Outpatient (AMB) | payer OTHER, SELFPAY ==
--- NOTE | 2025-07-11 10:14 | A.OFFVIS_ITS ---
Intake Visit Reasons: TV EMB Results Intake Note: cell # [phone] Radio Electrician: Radio Electrician Present Allergies No Known Allergies (No Known Allergies*) Allergy (Verified 06/26/25 10:55) general anesthesia Adverse Reaction (Severe, Uncoded 03/02/25 10:26) Blood pressure dropped very low. Is last menstrual period known: Yes Last menstrual period: 07/10/25 HPI Comments Details: Tele Health Visit Total time I personally spent on visit and management today: 30 minutes. Time spent included review of pertinent office notes in the electronic health record; review of laboratory and imaging results; review of personal family medical history; discussing diagnosis and plan of care with the patient; documenting the encounter in the EMR. Patient presents to discuss: Endometrial biopsy results, history of AUB. She denies any contraindications to control such as: migraines with aura, history of DVT or pulmonary emboli, high blood pressure, liver disease, t hrombolic disorders, Lupus, +CLAY, breast cancer, or smoking. [facility] Medical History Encounter for well woman exam with routine gynecological exam Abnormal uterine bleeding (AUB) Fibroid Hx of cardiac murmur Deficient knowledge of leg surgery Surgical History H/O colonoscopy Hx of varicose vein ligation History of tubal ligation Family History Father No problems noted. Sister No problems noted. Sister No problems noted. 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 Current occupational exposures/hazards: No Cognitive needs: No Hearing needs: No Vision needs: No Female Reproductive History Menstrual Date of last menstrual period: 07/10/25 Review of Systems Const All systems reviewed & are unremarkable except as noted in HPI and below Endo Reports no additional complaints Physical Exam Const General: cooperative, healthy appearing and no acute distress Psych Appearance: well kempt Attitude: cooperative Thought process: Normal thought process present Telehealth Telehealth Telehealth Platform: [employer] Location of provider rendering services: practice address Location of patient: address on file Patient Identification confirmed using: Name, : Yes Telehealth method: video Patient verbally consented to treatment: Yes Patient verbally consented to billing insurance company: Yes Patient informed of any privacy concerns related to visit: Yes Results Reviewed Results Reviewed: Surgical Pathology [id number] Name: Yue Chaudhry Age/Sex: 44/F Attending: Alissa Liang CNM : 1980 Submitted by: Alissa Liang CNM Copies to: Tuan Christy MD MR #: [id number] Status: DEP REF Collected: 06/26/25 Location: [facility] Received: 06/26/25 Diagnosis Endometrium, biopsy: - Disordered proliferative endometrium; no atypia or hyperplasia identified. - Endocervical epithelium within normal limits. Clinical History AUB Microscopic Description Microscopic sections reviewed. Material Received Endometrial biopsy Gross Description Received in formalin labeled ?endometrial biopsy? are fragments of red-pink soft tissue mixed with mucus and clotted blood forming an aggregate measuring 2.4 x 1.7 x 0.3 cm which is wrapped in lens paper and entirely submitted for microscopic examination, multiple pieces in cassette A. ([facility]) Copies To Tuan Christy MD [address] [id number] Alissa Liang CNM [facility] [address] [place] [address] Drive [address] [place], [place] [id number] NOTE: Unless otherwise stated, all tissue is formalin-fixed and paraffin- embedded. Some or all of the immunohistochemical tests reported herein may have been developed and their performance characteristics determined by [facility]. They have not been cleared or approved by the U.S. Food and Drug Administration (FDA). However, the FDA has determined that such clearance or approval is not necessary. This laboratory is certified under the Clinical Laboratory Improvement Amendments of 1988 (CLIA) as qualified to perform high complexity clinical laboratory testing. Patient: Yue Chaudhry Age/Sex: 44/F MR#: [id number] Page 1 of 2 Surgical Pathology [id number] Electronically Signed By: Tuan Bolivar MD 06/27/25 1728 Patient: Yue Chaudhry Age/Sex: 44/F MR#: [id number] Page 2 of 2 Assessment & Plan Assessment & Plan (1) Abnormal uterine bleeding (AUB): Code(s): N93.9 - Abnormal uterine and vaginal bleeding, unspecified Category: Medical Plan: Counseled regarding AUB treatment options to include medical- including Mirena IUD, control pills and other, procedural-uterine ablation, surgical as last resort. (2) Counseling for initiation of control method: Code(s): Z30.09 - Encounter for other general counseling and advice on contraception Plan Instructed on pill use. Start of pill: within 5 days of a normal menses, if greater than that, use a back up method or abstain for 7 days. Also may start if NO unprotected intimacy since the last normal menses (use a back up method for seven days)9. How to take: Take at the same time of day. Take with food if nausea occurs, and closer to bedtime may be helpful. What to do when missing a pill or taking one late: take as soon as you remember, and use a back up method (condoms, or abstinence is required) for 7 days. Side effects: break through bleeding, nausea, mood changes, breast tenderness, headaches, bloating. Most of these all resolve in the first 2-3 months of use. Warnings: serious complications from the pill associated with a DVT (deep viem thrombosis), risks to stroke, PE (pulmonary emboli), potentially fatal. Report any serious side effects: call 911 and seek medical emergenct treatment for any ACHES . Abdominal pain (sever). Chest pain (difficulty breathing). Headache (severe). Extremity pain(sudden pain in one extermity). Sudden blindness/loss of vision. Report any medical changes to our office so that we can determine if the p This note is constructed using voice recognition software. While every effort has been made to ensure accuracy, hot press operator errors may have been included. ill is an appropriate method for continued use. Keep all follow up appointments for pill use surveilance as directed, 2-3 months follow up. The patient expressed understanding and agreement with the plan of care. All of her questions and concerns were addressed to the best of my ability. This note is constructed using voice recognition software. While every effort has been made to ensure accuracy, hot press operator errors may have been included. Medications: New desogestrel-ethinyl estradiol 0.15-0.03 mg (Apri) 1 tab PO DAILY 90 tabs 0RF 90 days Coding Level of Care Code Tele Est Pt Level 3 (39949) Diagnoses Abnormal uterine bleeding (AUB) N93.9 Counseling for initiation of control method Z30.09
== END 2025-07-11 12:59 | disposition home or self-care (01) ==
LOC: HO.HWS 10:14
PROVIDERS: PCP Family Medicine; Visit Provider Advanced Practice Midwife
DX: N93.9 Abnormal uterine and vaginal bleeding, unspecified (principal); Z30.09 Encounter for other general counseling and advice on contraception
CPT/HCPCS: 99213